=== PATIENT | female | born 1975 | race Caucasian/White ===

== ENCOUNTER 2018-01-25 02:43 | Emergency (ER) | payer OTHER, SELFPAY ==
[2018-01-25 02:55] VITALS: BP 128/74; PULSE 63; RESP 18; TEMP 37; O2SAT 100; BMI 22.1
--- NOTE | 2018-01-25 03:12 | ED.BACK ---
HPI - Back Pain/Injury General Chief Complaint: Back Pain/Injury Stated Complaint: headache, possible head injury Time Seen by Provider: 01/25/18 03:12 Source: patient Mode of arrival: ambulatory Limitations: no limitations History of Present Illness HPI Narrative: The patient was swimming with her children [place] local [place] yesterday morning. She dove into the pool, her form was inadequate. Her head snapped over. She felt cracking in her neck. She presents now about 1.5 days later with suboccipital neck pain, and pain radiating down into the upper thoracic spine. She has occipital headache. She continues swimming after the event. The pain has increased over time. She has no weakness or numbness in extremities. She is ambulatory without difficulty. She has no chest pain or dyspnea. She has no prior history of neck injury. Related Data Home Medications Medication Instructions Recorded Confirmed levothyroxine [Synthroid] 12.5 mcg PO AMAC #0 02/25/16 Previous Rx's Medication Instructions Recorded cyclobenzaprine 10 mg PO Q8HP PRN #20 tab 08/10/16 diazepam [Valium] 5 mg PO Q8H PRN #10 tab 01/25/18 Allergies Allergy/AdvReac Type Severity Reaction Status Date / Time cefaclor Allergy Mild ITCHING Verified 01/25/18 02:59 Review of Systems Review of Systems All systems reviewed & are unremarkable except as noted in HPI and below Constitutional Reports as per HPI, Reports body ache(s), Denies lethargy, Denies weakness and Reports other (Generally healthy) Eyes Denies change in vision ENT Ears, Nose, Mouth, and Throat: Denies change in voice, Denies dysphagia, Denies dizziness and Reports neck pain Cardiovascular Denies chest pain, Denies lightheadedness and Denies dyspnea Respiratory Denies dyspnea Gastrointestinal Gastrointestinal: Denies dysphagia Musculoskeletal Reports neck pain Neurologic Denies dizziness and Denies weakness [facility] Medical History Abscess of pelvis (Acute) Surgical History History of third molar tooth extraction Status post appendectomy Status post bilateral salpingo-oophorectomy (BSO) (04/03/16) Status post exploratory laparotomy (04/03/16) Status post hysterectomy (04/03/16) Status post laparoscopy Social History Smoking Status: Never smoker Exam Initial Vital Signs Initial Vital Signs: Vital Signs Temperature 98.6 F 01/25/18 02:55 Pulse Rate 63 01/25/18 02:55 Respiratory Rate 18 01/25/18 02:55 Blood Pressure 128/74 01/25/18 02:55 Pulse Oximetry 100 01/25/18 02:55 Const General: cooperative and well developed Nutritional Appearance: well nourished Orientation: alert, awake, oriented x3 and not confused Eyes Pupils: PERRL EOM: EOM intact bilaterally Neck Neck: normal visual inspection and other (Tenderness bilaterally in the upper paraspinal region. No tenderness exactly over the cervical spine.) Resp Effort & Inspection: normal respiratory effort, able to speak in complete sentences, no respiratory distress and no use of accessory muscles Auscultation: clear to auscultation bilaterally, no rales, no rhonchi and no wheezes Cardio Rate: regular rate Rhythm: regular rhythm Heart Sounds: no click, no gallops, no murmurs and no rubs Pulses: normal peripheral pulses Back/Spine/Pelvis Back: CVA tenderness Cervical Spine: cervical ROM normal and pain with cervical ROM Thoracic/Lumbar Spine: thoraco-lumbar ROM normal and lumbar spinal tenderness Neuro General: alert, oriented x3 and gait normal Speech: speech normal Motor: other (Normal motor exam of the left upper and lower extremities.) Sensory Exam: other (Normal sensory exam of the upper extremities.) Course Orders Ordered: ED Orders 01/25/18 03:32 XR cervical spine 2V or 3V Stat Discontinued Medications Diazepam (Valium) 5 mg PO NOW ONE Stop: 01/25/18 03:48 Last Admin: 01/25/18 03:53 Dose: 5 mg Ketorolac Tromethamine (Toradol) 60 mg IM NOW ONE Stop: 01/25/18 03:38 Last Admin: 01/25/18 03:52 Dose: 60 mg Vital Signs - 8 hr 01/25/18 02:55 01/25/18 04:50 Temperature 98.6 F Pulse Rate 63 70 Respiratory Rate 18 18 Blood Pressure 128/74 108/67 Pulse Oximetry 100 100 MDM - Back Pain/Injury Imaging Data C-spine x-ray:: My impression: Normal. MDM Narrative Medical decision making narrative: By the history and clinical evaluation she appears to have cervical strain. She has paraspinal tenderness in the occipital area. She will be treated with anti-inflammatories and Valium. I advised her to follow up with her physician in 1 week if no better. If she does not improve, MRI may can be considered. Discharge Plan Departure Patient Disposition: Home Clinical Impression: Cervical muscle strain Discharge Date/Time: 01/25/18 04:51 Interventions: ED Discharge Assessment Last Done: 01/25/18 04:50 Instructions: Whiplash Activity Restrictions/Additional Instructions: Ibuprofen 800 mg every 6 hr as needed for pain. Valium 1/2 to 1 tablet every 6 hr as needed for spasm. Apply warm compresses to the neck frequently. Recheck with her doctor if not improving within the next week or so. Return here if obviously worse. Prescriptions: New diazepam [Valium] 5 mg tablet 5 mg PO Q8H PRN (Reason: muscle spasm) Qty: 10 RF: 0 No Action levothyroxine [Synthroid] 25 MCG tablet 12.5 mcg PO AMAC Qty: 0 RF: 0 cyclobenzaprine 10 MG tablet 10 mg PO Q8HP PRNQty: 20 RF: 0
--- NOTE | 2018-01-25 03:32 | DI.RAD.S_ITS ---
PROCEDURE: XR CERVICAL SPINE 2V OR 3V INDICATIONS: cervical strain TECHNIQUE: 3 view(s) of the cervical spine were acquired. COMPARISON: None. FINDINGS: Bones: No fractures or dislocations to the T1 level. The lateral masses of C1 appear intact on the odontoid view. No suspicious bony lesions. Straightening of the normal cervical lordosis. Mild narrowing of the disc spaces at C5-C6, C6-C7. Diffuse mild facet arthropathy. Soft tissues: No prevertebral soft tissue swelling. IMPRESSION: Mild cervical disc degeneration as above. Straightening of the normal cervical lordosis. Mild facet disease. No fracture. Dictated by: Omi Jose M.D. on 01/25/2018 at 8:39 Approved by: Omi Jose M.D. on 01/25/2018 at 8:42
[2018-01-25] MEDS: KETOROLAC 60 MG/2 ML VIAL IM (03:52)
[2018-01-25] MEDS: diazePAM 5 MG TABLET PO (03:53)
[2018-01-25 04:50] VITALS: BP 108/67; PULSE 70; RESP 18; O2SAT 100
== END 2018-01-25 04:51 | disposition home or self-care (01) ==
PROVIDERS: Emergency Provider Emergency Medicine; PCP Family Medicine
DX: S16.1XXA Strain of muscle, fascia and tendon at neck level, initial encounter (principal); Y93.11 Activity, swimming; Y92.34 Swimming pool (public) as the place of occurrence of the external cause
CPT/HCPCS: 72040; 96372; 99282; 99283; J1885

== ENCOUNTER → 2018-02-24 17:47 | Outpatient (CLI) | payer OTHER, SELFPAY ==
--- NOTE | 2018-02-24 17:50 | DI.MRI.S_ITS ---
PROCEDURE: MR CERVICAL SPINE WO CON INDICATIONS: NECK PAIN TECHNIQUE: Noncontrast sagittal T1 spin echo and T2 fast spin echo, sagittal STIR, foraminal oblique sagittal T2 fast spin echo, and axial gradient echo or T2 fast spin echo through the cervical spine. COMPARISON: None. FINDINGS: Image quality: Excellent. Alignment and Curvature: There is straightening of normal cervical lordosis. No spondylolisthesis is seen. Bone Marrow: Marrow demonstrates normal overall signal. Spinal Cord: Visualized spinal cord has normal size and signal. No cerebellar tonsillar herniation. Paraspinous Soft Tissues: No paravertebral masses. Prevertebral soft tissues are normal in thickness. C2-C3: Normal appearance. C3-C4: Normal appearance. C4-C5: Mild diffuse disc bulge is seen. Bilateral uncinate hypertrophic changes are noted. There is mild left-sided neuroforaminal narrowing. No significant central canal stenosis. C5-C6: There is broad-based disc bulge and bilateral facet hypertrophic changes. Mild central canal stenosis and mild bilateral neuroforaminal narrowing is noted. C6-C7: There is diffuse disc bulge and bilateral uncinate hypertrophic changes with mild central canal stenosis and mild left-sided neuroforaminal narrowing. C7-T1: Normal appearance. IMPRESSION: 1. Mild degenerative disc bulge and bilateral uncinate hypertrophic changes at C4-5 through C6-7 levels causing mild central canal stenosis and mild left worse than right bilateral neuroforaminal narrowing as above. 2. No marrow edema. No compression fracture or spondylolisthesis. 3. No abnormal cervical spinal cord signal. Dictated by: Shekhar Espinoza M.D. on 02/25/2018 at 8:42 Approved by: Shekhar Espinoza M.D. on 02/25/2018 at 8:45
== END ==
PROVIDERS: PCP Family Medicine; Visit Provider Chiropractor
DX: M50.821 Other cervical disc disorders at C4-C5 level (principal); M48.02 Spinal stenosis, cervical region
CPT/HCPCS: 72141

== ENCOUNTER → 2018-07-18 07:34 | Outpatient (CLI) | payer OTHER, SELFPAY ==
--- NOTE | 2018-07-18 | DI.US.S_ITS ---
PROCEDURE: US ABDOMEN COMPLETE INDICATIONS: ABDOMINAL PAIN TECHNIQUE: Real-time scanning was performed of the abdominal and retroperitoneal organs, with image documentation. COMPARISON: [facility], US, US PELVIC COMPLETE, 07/18/2018, 8:27. [facility], CT, ABDOMEN/PELVIS WITH CONTRAST, 08/10/2016, 14:20. FINDINGS: Liver: Liver is normal in size and homogeneous in echotexture. Within the left lobe of the liver medially, there is a 2.4 x 1.4 x 2.7 cm simple appearing cyst seen. Gallbladder: No findings of gallstones or sludge are seen. The gallbladder wall is not thickened, measuring 3 mm or less. No specific pericholecystic fluid is seen. The sonographic Dupree sign is negative. Biliary ducts: Intrahepatic bile ducts are non-dilated. Extrahepatic bile duct caliber measures 4 mm. Normal is 6-7 mm or less in diameter, or 10 mm or less post-cholecystectomy. Pancreas: Visualized portions of the pancreas are sonographically normal. Spleen: Spleen is normal in size and homogeneous in echotexture. Kidneys: The kidneys are not well-seen, secondary to overlying bowel. Kidneys are normal in size and echotexture. Right kidney measures 9.7 cm long; left kidney measures 9.8 cm long. There is a potential extrarenal pelvis seen on the left. No rafael hydronephrosis or nephrolithiasis. No solid masses. Aorta: Visualized aorta is normal in caliber at less than 3 cm. Iliacs: Proximal common iliac arteries are normal in caliber at less than 2.5 cm. IVC: Intrahepatic inferior vena cava is patent. Miscellaneous: No free abdominal fluid. IMPRESSION: Potential extrarenal pelvis seen on the left. No shadowing kidney stones are seen. The gallbladder demonstrates a normal sonographic appearance. No biliary dilatation is seen. Left liver cyst again seen. Dictated by: Mendoza Manuel M.D. on 07/18/2018 at 8:14 Approved by: Mendoza Manuel M.D. on 07/18/2018 at 8:17
--- NOTE | 2018-07-18 | DI.US.S_ITS ---
PROCEDURE: US PELVIC COMPLETE INDICATIONS: GENERALIZED ABDOMINAL PAIN TECHNIQUE: Real-time scanning was performed of the pelvic organs, with image documentation. Additional endovaginal scanning was necessary due to incomplete visualization of the adnexal and endometrial structures by transabdominal scanning. COMPARISON: [facility], CT, ABDOMEN/PELVIS WITH CONTRAST, 08/10/2016, 14:20. [facility], CT, IVP (ABD & PEL WWO CONTRAST), 04/09/2016, 10:06. [facility], US, US ABDOMEN COMPLETE, 07/18/2018, 8:05. [facility], US, PELVIC COMPLETE, 03/19/2016, 8:56. FINDINGS: Transabdominal scanning: No pathologic free abdominal or pelvic fluid. On the accompanying abdominal ultrasound, the kidneys demonstrate a normal appearance. Endovaginal scanning: Uterus: Removed. The vaginal cuff is unremarkable. Ovaries: The left ovary has been removed. The right ovary measures 3.9 x 2.4 x 2.4 cm and demonstrates normal appearing subcentimeter follicles. IMPRESSION: Status post hysterectomy and left oophorectomy. Unremarkable appearing right ovary. Dictated by: Mendoza Manuel M.D. on 07/18/2018 at 9:02 Approved by: Mendoza Manuel M.D. on 07/18/2018 at 9:04
== END ==
PROVIDERS: Family Provider Family Medicine; PCP Family Medicine; Visit Provider Family Medicine
DX: R10.84 Generalized abdominal pain (principal); K76.89 Other specified diseases of liver; Z90.710 Acquired absence of both cervix and uterus
CPT/HCPCS: 76700; 76830; 76856

== ENCOUNTER → 2018-07-25 13:44 | Outpatient (CLI) | payer OTHER, SELFPAY ==
--- NOTE | 2018-07-25 | DI.CT.S_ITS ---
PROCEDURE: CT ABDOMEN PELVIS WO/W CON INDICATIONS: Hematuria, unspecified TECHNIQUE: Optional 5 mm thick noncontrast images acquired from the diaphragm to the symphysis pubis. After the administration of intravenous contrast, 5 mm thick images acquired from the diaphragm to the symphysis pubis after a 10-minute delay. 2 mm thick coronal and sagittal reformats were then performed of the kidneys and ureters. For radiation dose reduction, the following was used: automated exposure control, adjustment of mA and/or kV according to patient size. COMPARISON: [facility], CT, ABDOMEN/PELVIS WITH CONTRAST, 08/10/2016, 14:20. [facility], CT, IVP (ABD & PEL WWO CONTRAST), 04/09/2016, 10:06. [facility], CT, ABDOMEN/PELVIS WITH CONTRAST, 02/24/2016, 22:40. [facility], CT, IVP (ABD & PEL WWO CONTRAST), 01/20/2012, 13:16. FINDINGS: Diagnostic Image quality: Excellent. Lung bases: Lung bases are clear. Heart size is normal. Urinary system: Both kidneys are normal in size, without hydronephrosis or nephrolithiasis on pre-contrast images. No perinephric fat stranding. There is normal bilateral renal enhancement. Renal calyces appear normal in morphology when filled with contrast. A 7 mm simple appearing cyst is present within it the upper to mid right kidney (image 51, series 5). No solid renal lesions are evident. Opacified portions of both ureters demonstrate normal caliber. Bladder wall thickness is normal. No calcified bladder stones. Other solid organs: The liver is normal in size. There is a simple appearing cyst involving the medial segment of the left hepatic lobe that measures 2.4 x 1.6 cm (image 78, series 3), unchanged. The gallbladder is not enlarged or inflamed. The pancreas, adrenals, and spleen are within normal limits. Peritoneum and bowel: Bowel loops demonstrate normal wall thickness and caliber. No free fluid or air. No loculated fluid collections are present. No fluid-filled distended small bowel loops are identified. Moderate residual stool is seen within the colon. The appendix is not clearly evident. Minimal distal colonic diverticulosis is evident without surrounding inflammation to suggest diverticulitis. Nodes and vessels: No retroperitoneal or mesenteric adenopathy by size criteria. Aorta and inferior vena cava are normal in size. Abdominal wall: No ventral hernias. Pelvis: No pathologic free pelvic fluid. No inguinal hernias or adenopathy. The uterus is surgically absent. The ovaries are not definitely seen and may be surgically absent, as well. Bones: No suspicious bony lesions. No vertebral body compression fractures. IMPRESSION: 1. No CT findings are identified to explain the patient's hematuria. 2. No nephrolithiasis or hydronephrosis. 3. Possible mild colonic constipation. No bowel obstruction. 4. Mild distal colonic diverticulosis without diverticulitis. 5. Simple hepatic cyst is unchanged. Dictated by: Conor Moreira M.D. on 07/25/2018 at 15:48 Approved by: Conor Moreira M.D. on 07/25/2018 at 15:55
== END ==
PROVIDERS: Family Provider Family Medicine; PCP Family Medicine; Visit Provider Family Medicine
DX: R31.9 Hematuria, unspecified (principal); N28.1 Cyst of kidney, acquired; K76.89 Other specified diseases of liver; K57.90 Diverticulosis of intestine, part unspecified, without perforation or abscess without bleeding
CPT/HCPCS: 74178; Q9967

== ENCOUNTER → 2018-07-27 16:37 | Outpatient (CLI) | payer OTHER, SELFPAY ==
--- NOTE | 2018-07-27 | DI.RAD.S_ITS ---
PROCEDURE: XR CLAVICLE LT INDICATIONS: PAIN AND SWELLING AND LEFT BREAST SWELLING AND PAIN TECHNIQUE: 2 views of the clavicle were acquired. COMPARISON: None. FINDINGS: Bones: There is slight inferior subluxation at left acromioclavicular joint. No fracture or rafael dislocation is seen. No suspicious bony lesions. Soft tissues: No suspicious soft tissue calcifications. IMPRESSION: Finding is suggestive of moderate grade left acromioclavicular separation. No fracture is seen. Dictated by: Shekhar Espinoza M.D. on 07/27/2018 at 17:15 Approved by: Shekhar Espinoza M.D. on 07/27/2018 at 17:16
== END ==
PROVIDERS: Family Provider Family Medicine; PCP Family Medicine; Visit Provider Family Medicine
DX: M89.8X1 Other specified disorders of bone, shoulder (principal); N64.4 Mastodynia
CPT/HCPCS: 73000

== ENCOUNTER 2018-07-28 17:03 | Emergency (ER) | payer OTHER, SELFPAY ==
[2018-07-28 17:10] VITALS: BP 128/82; PULSE 98; RESP 16; TEMP 37.2; O2SAT 100; BMI 21.6
[2018-07-28 18:13] VITALS: BP 117/83; PULSE 71; RESP 14; O2SAT 100
--- NOTE | 2018-07-28 18:41 | ED.CHESTPAIN ---
HPI - Chest Pain General Chief Complaint: Chest Pain Stated Complaint: chest, breast, neck and throat pain Time Seen by Provider: 07/28/18 18:37 Source: patient Mode of arrival: ambulatory Limitations: no limitations History of Present Illness HPI narrative: The patient presents with multiple complaints. She has been experience discomfort in the left clavicle region for approximately 1 month. She did should complains of pain in the anterior neck, especially noted when swallowing. She denies shortness of breath. She denies any choking sensation. Discomfort is also present in the left axilla, primarily with palpation. She has not felt lumps in her neck or axilla. She has no pain with motion of the left shoulder. She denies any specific trauma. Yesterday she apparently had swelling and discomfort in left breast, she does not have that sensation now. She has had no drainage from the breast. Her last routine exam was about 6 months ago. She contacted her physician, a mammogram is ordered. She has not scheduled for an exam. She has no history of breast disease. She has apparently been complaining abdominal pain also. Thus far her physician has ordered pelvic ultrasound, abdominal ultrasound, and abdomen/pelvis CT. She has proteinuria, she has a long history of hematuria without associated pathology. She is status post hysterectomy with left oophorectomy. She has no vaginal complaints. She denies dysuria. She has noted that she has lately had proteinuria, but no dysuria or recent significant hematuria. The ultrasounds and CTs were relatively benign. With the neck, clavicle, axilla and breast complains, she denies trauma. However she tells me she was on a strenuous workout program recently, prior to these current complaints. Her workout included weightlifting as well as aerobic exercises. Again she can recall no trauma. She has no chest pain with exertion. She has no dyspnea, cough, orthopnea or hemoptysis. She denies leg pain or swelling. She has no history of cardio vascular pulmonary disease. She has no recent weight loss, appetite change, night sweats or fever. Related Data Home Medications Medication Instructions Recorded Confirmed dextroamphetamine-amphetamine 30 mg PO QAM 07/28/18 07/28/18 Allergies Allergy/AdvReac Type Severity Reaction Status Date / Time cefaclor Allergy Mild ITCHING Verified 01/25/18 02:59 Review of Systems Review of Systems ROS Unobtainable: All systems reviewed & are unremarkable except as noted in HPI and below Constitutional Reports as per HPI, Reports system reviewed and no additional complaints, except as docu, Denies excessive sweating, Denies fatigue and Denies frequent falls Eyes Comments: No eye complaints ENT Ears, Nose, Mouth, and Throat: Denies change in voice, Denies dizziness, Denies neck mass, Reports neck pain, Denies odynophagia and Denies sore throat Cardiovascular Reports chest pain (Left upper chest discomfort. See HPI.), Denies irregular heart rhythm, Denies lightheadedness, Denies palpitations, Denies dyspnea, Denies dyspnea on exertion and Denies orthopnea Respiratory Denies cough, Denies dyspnea, Denies dyspnea on exertion, Reports wheezing and Reports other (No hemoptysis.) Gastrointestinal Gastrointestinal: Denies odynophagia Comments: See HPI. Genitourinary Denies dysuria, Denies pelvic pain and Denies flank pain Musculoskeletal Denies back pain, Denies myalgias, Reports neck pain and Denies numbness Integumentary/Breasts Denies erythema, Denies rash and Denies wounds Neurologic Denies confusion, Denies dizziness, Denies frequent falls and Denies numbness Psychiatric Denies anxiety and Denies confusion Endocrine Denies excessive sweating, Denies fatigue and Denies palpitations Hematologic/Lymphatic Denies easy bleeding, Denies easy bruising and Denies lymphadenopathy Allergic/Immunologic Reports wheezing Comments: No allergies [facility] Medical History (Updated 07/28/18 @ 22:53 by Fransico Card MD) Benign hematuria (Acute) Hypothyroidism (Acute) Abscess of pelvis (Acute) Surgical History History of third molar tooth extraction Status post appendectomy Status post bilateral salpingo-oophorectomy (BSO) (04/03/16) Status post exploratory laparotomy (04/03/16) Status post hysterectomy (04/03/16) Status post laparoscopy Social History Smoking Status: Former smoker Social History Smoking Status: Former smoker Exam Initial Vital Signs Initial Vital Signs: Vital Signs Temperature 99.0 F 07/28/18 17:10 Pulse Rate 98 H 07/28/18 17:10 Respiratory Rate 16 07/28/18 17:10 Blood Pressure 128/82 07/28/18 17:10 Pulse Oximetry 100 07/28/18 17:10 Const General: cooperative and well developed Nutritional Appearance: well nourished Orientation: alert, awake and oriented x3 [facility] Head: normocephalic and atraumatic Nose: external nose normal Face and sinus: face symmetric Mouth: oral mucosae normal and moist mucous membranes Throat: posterior oropharynx normal Eyes General: appearance normal, both eyes and all related structures Conjunctivae: conjunctivae normal Sclera: sclerae normal Neck Neck: normal visual inspection, full ROM, no meningeal signs, trachea midline, No anterior neck swelling, No lymphadenopathy and No JVD Thyroid: thyroid normal Carotids: normal carotid upstroke Lymphatic: No lymphadenopathy Chest Chest: normal inspection of the chest Other: Palpable tenderness of the left sternoclavicular joint without palpable deformity. Resp Effort & Inspection: normal respiratory effort, able to speak in complete sentences, no respiratory distress and no use of accessory muscles Auscultation: clear to auscultation bilaterally, no rales, no rhonchi and no wheezes Cardio Rate: regular rate Rhythm: regular rhythm Heart Sounds: no click, no gallops, no murmurs and no rubs Pulses: normal peripheral pulses GI Inspection: non-distended Palpation: soft, no hepatosplenomegaly, No guarding, No pulsatile mass and No tender Auscultation: normal bowel sounds Back/Spine/Pelvis Back: No back tenderness and No CVA tenderness Skin General: no rashes or lesions noted, No jaundice and No petechiae Neuro General: alert, oriented x3, gait normal and no focal motor deficits Speech: speech normal Extrem General: No calf tenderness and No edema Psych Appearance: grossly normal and well kempt Mental Status: mental status grossly normal Course Course Narrative: The patient is concerned about proteinuria may on require monitoring. The urine is currently clear other than slight hematuria, she has a history consistent with benign hematuria with prior extensive workups. The abdomen pelvis workup done in recent days is benign. Complaints in the neck, clavicle and axilla may represent strain/sprain. She was on a rather aggressive workout regimen before symptoms started. Evaluation is benign. Her TSH is slightly elevated. She was previously on medications for hypothyroidism, this has not been looked into recently and she is off medications. She also complained about left breast swelling yesterday. Mammogram is ordered, she has no follow-up appointment yet. I have encouraged her to make a follow-up appointment to address the breast concern, along with a mammogram that order. She has additional follow-up on her thyroid. Orders Ordered: ED Orders 07/28/18 18:25 Complete Blood Count AUTO DIFF Stat Comprehensive Metabolic Panel Stat D Dimer Stat Lipase Stat Prothrombin Time INR Stat Thyroid Stimulating Hormone Stat Troponin & CK Cardiac Panel Stat 07/28/18 19:12 XR chest 2V Stat Discontinued Medications Ketorolac Tromethamine (Toradol) 30 mg IV NOW ONE Stop: 07/28/18 20:07 Last Admin: 07/28/18 20:09 Dose: 30 mg Vital Signs - 8 hr 07/28/18 17:10 07/28/18 18:13 07/28/18 19:20 Temperature 99.0 F Pulse Rate 98 H 71 68 Respiratory Rate 16 14 12 Blood Pressure 128/82 Blood Pressure [Left Arm] 121/79 Blood Pressure [Right Arm] 117/83 119/82 Pulse Oximetry 100 100 100 07/28/18 20:53 Temperature Pulse Rate 71 Respiratory Rate 14 Blood Pressure 119/78 Blood Pressure [Left Arm] Blood Pressure [Right Arm] Pulse Oximetry 98 MDM - Chest Pain Lab Data Result diagrams: 07/28/18 18:25 07/28/18 18:25 Lab Results 07/28/18 07/28/18 07/28/18 Range/Units 18:25 18:25 18:25 WBC 7.3 (4.5-11.0) X10^3/uL RBC 4.62 (4.0-5.2) X10^6/uL Hgb 14.4 (12.0-16.0) g/dL Hct 42.9 (36-46) % MCV 92.9 (80-100) fL MCH 31.2 (26-34) PG MCHC 33.6 (30-36) % RDW 12.4 (11.6-14.8) % Plt Count 216 (150-400) X10^3/uL Neut % (Auto) 71.3 (50-75) % Lymph % (Auto) 20.1 L (25-40) % Foard % (Auto) 6.8 (3-14) % Eos % (Auto) 1.0 L (2-4) % Baso % (Auto) 0.8 (0-2) % Neut # (Auto) 5200 (1751-9682) /uL Lymph # (Auto) 1500 (0818-6254) /uL Foard # (Auto) 500 (0-900) /uL Eos # (Auto) 100 (0-450) /uL Baso # (Auto) 100 (0-100) /uL PT (10.1-12.7) SECONDS INR (0.9-1.3) D-Dimer (<230) ng/mL Sodium 140 (137-145) mmol/L Potassium 4.0 (3.4-5.1) mmol/L Chloride 104 (98-107) mmol/L Carbon Dioxide 29 (22-32) mmol/L BUN 15 (7-17) mg/dL Creatinine 0.60 (0.52-1.04) mg/dL Estimated GFR > 60.0 (>60) mL/min BUN/Creatinine Ratio 25.0 H (6-22) Glucose 81 (70-100) mg/dL Calcium 9.5 (8.4-10.2) mg/dL Total Bilirubin 0.8 (0.2-1.3) mg/dL AST 26 (14-36) IU/L ALT 20 (9-52) IU/L Alkaline Phosphatase 73 (38-126) U/L Total Creatine Kinase 101 (30-135) U/L CK-MB (CK-2) 1.25 (<2.37) ng/mL CK-MB (CK-2) Rel Index 1.2 L (1.5-5.0) % Troponin I < 0.012 (0.01-0.034) ng/mL Total Protein 7.0 (6.3-8.2) g/dL Albumin 4.3 (3.5-5.0) g/dL Globulin 2.7 (1.7-4.1) g/dL Albumin/Globulin Ratio 1.6 (1.0-2.8) Lipase 50 (23-300) U/L TSH (0.47-4.68) uIU/mL 07/28/18 07/28/18 07/28/18 Range/Units 18:25 18:25 18:25 WBC (4.5-11.0) X10^3/uL RBC (4.0-5.2) X10^6/uL Hgb (12.0-16.0) g/dL Hct (36-46) % MCV (80-100) fL MCH (26-34) PG MCHC (30-36) % RDW (11.6-14.8) % Plt Count (150-400) X10^3/uL Neut % (Auto) (50-75) % Lymph % (Auto) (25-40) % Foard % (Auto) (3-14) % Eos % (Auto) (2-4) % Baso % (Auto) (0-2) % Neut # (Auto) (1098-3473) /uL Lymph # (Auto) (5628-7380) /uL Foard # (Auto) (0-900) /uL Eos # (Auto) (0-450) /uL Baso # (Auto) (0-100) /uL PT 12.3 (10.1-12.7) SECONDS INR 1.1 (0.9-1.3) D-Dimer 201 (<230) ng/mL Sodium (137-145) mmol/L Potassium (3.4-5.1) mmol/L Chloride (98-107) mmol/L Carbon Dioxide (22-32) mmol/L BUN (7-17) mg/dL Creatinine (0.52-1.04) mg/dL Estimated GFR (>60) mL/min BUN/Creatinine Ratio (6-22) Glucose (70-100) mg/dL Calcium (8.4-10.2) mg/dL Total Bilirubin (0.2-1.3) mg/dL AST (14-36) IU/L ALT (9-52) IU/L Alkaline Phosphatase (38-126) U/L Total Creatine Kinase (30-135) U/L CK-MB (CK-2) (<2.37) ng/mL CK-MB (CK-2) Rel Index (1.5-5.0) % Troponin I (0.01-0.034) ng/mL Total Protein (6.3-8.2) g/dL Albumin (3.5-5.0) g/dL Globulin (1.7-4.1) g/dL Albumin/Globulin Ratio (1.0-2.8) Lipase (23-300) U/L TSH 5.44 H (0.47-4.68) uIU/mL Urine Dip Bedside Urine Glucose Negative Bedside Urine Bilirubin - Negative Bedside Urine Ketone +/- 5 Urine Specific Mckenna 1.015 Bedside Urine Occult Blood + Bedside Urine pH 7.0 Bedside Urine Protein - Negative Bedside Urine Urobilinogen - Negative Bedside Urine Nitrite - Negative Bedside Urine Leukocytes - Negative Esterase Imaging Data Chest x-ray: Radiologist's impression: [address] [address] XRay Report Signed Patient: Syl Pires LMR#: [id number] : 1975Acct:[id number] Age/Sex: 43 / FDate of Service: 07/28/18 Loc: ED Accession Number: [id number] Procedure: XR chest 2V Ordering Provider: Fransico Card MD PROCEDURE: XR CHEST 2V INDICATIONS: left upper chest discomfort TECHNIQUE: 2 views of the chest were acquired. COMPARISON: [facility], , CHEST 1 VIEW, 03/07/2016, 18:33. FINDINGS: Surgical changes and devices: None. Lungs and pleura: Lungs are clear. No pleural effusions or pneumothorax. Mediastinum: Mediastinal contours are normal. Heart size is normal. Bones and chest wall: No suspicious bony abnormalities. Soft tissues appear unremarkable. IMPRESSION: No acute cardiopulmonary disease process. Dictated by: Yanira López MD, PhD on 07/28/2018 at 19:35 Approved by: Yanira López MD, PhD on 07/28/2018 at 19:36 ECG Data Attestation: I personally reviewed and interpreted this ECG as follows: (Normal sinus rhythm rate 71 beats per minute. Normal intervals. No ectopy. No acute ST T wave changes. Normal study.) Discharge Plan Departure Patient Disposition: Home Clinical Impression: Elevated TSH, Benign hematuria Sternoclavicular joint strain Qualifiers: Encounter type: initial encounter Qualified Code(s): S29.011A - Strain of muscle and tendon of front wall of thorax, initial encounter Discharge Date/Time: 07/28/18 20:54 Interventions: ED Discharge Assessment Last Done: 07/28/18 20:53 Instructions: Sprain, Hypothyroidism Activity Restrictions/Additional Instructions: Take Tylenol or Advil as needed for the pain in year clavicle and axilla. Return to her normal workouts of tolerated. Recheck with her own doctor in 3-4 weeks if not improving. You need to follow up with her doctor regarding your breast concerns. I understand you have a mammogram ordered, you should schedule for an associated physical. Your TSH is slightly elevated. I now understand you used to be on medications for hypothyroidism. Follow up with her doctor about complete re-evaluation of your thyroid. Return to the ER as needed. Prescriptions: No Action dextroamphetamine-amphetamine 30 mg capsule,extended release 24hr 30 mg PO QAM RF: 0 Referrals: Gómez Howard MD [Primary Care Provider] -
[2018-07-28 18:47] LABS: Add Manual Diff / Slide Review NO; Basophils Absolute Auto 100 /uL (0-100); Basophils Percent Auto 0.8 % (0-2); Eosinophils Absolute Auto 100 /uL (0-450); Hematocrit 42.9 % (36-46); Hemoglobin 14.4 g/dL (12.0-16.0); Lymphocytes Absolute Auto 1500 /uL (1100-4500); Lymphocytes Percent Auto 20.1 % (25-40); Mean Corpuscular HGB Conc 33.6 % (30-36); Mean Corpuscular Hemoglobin 31.2 PG (26-34); Mean Corpuscular Volume 92.9 fL (80-100); Monocytes Absolute Auto 500 /uL (0-900); Monocytes Percent Auto 6.8 % (3-14); Neutrophils Absolute Auto 5200 /uL (1500-7000); Neutrophils Percent Auto 71.3 % (50-75); Platelet Count 216 X10^3/uL (150-400); Red Blood Cell Count 4.62 X10^6/uL (4.0-5.2); Red Cell Distribution Width 12.4 % (11.6-14.8); White Blood Cell Count 7.3 X10^3/uL (4.5-11.0)
[2018-07-28 19:08] LABS: Alanine Aminotransferase 20 IU/L (9-52); Albumin 4.3 g/dL (3.5-5.0); Albumin Globulin Ratio 1.6 (1.0-2.8); Alkaline Phosphatase 73 U/L (38-126); Aspartate Aminotransferase 26 IU/L (14-36); Bilirubin Total 0.8 mg/dL (0.2-1.3); Blood Urea Nitrogen 15 mg/dL (7-17); Calcium 9.5 mg/dL (8.4-10.2); Carbon Dioxide 29 mmol/L (22-32); Chloride 104 mmol/L (98-107); Creatine Kinase 101 U/L (30-135); Estimated Glomerular Filt Rate > 60.0 mL/min (>60); Globulin 2.7 g/dL (1.7-4.1); Glucose 81 mg/dL (70-100); HEMOLYSIS < 15 (0-50); Lipase 50 U/L (23-300); Sodium 140 mmol/L (137-145)
--- NOTE | 2018-07-28 19:12 | DI.RAD.S_ITS ---
PROCEDURE: XR CHEST 2V INDICATIONS: left upper chest discomfort TECHNIQUE: 2 views of the chest were acquired. COMPARISON: [facility], , CHEST 1 VIEW, 03/07/2016, 18:33. FINDINGS: Surgical changes and devices: None. Lungs and pleura: Lungs are clear. No pleural effusions or pneumothorax. Mediastinum: Mediastinal contours are normal. Heart size is normal. Bones and chest wall: No suspicious bony abnormalities. Soft tissues appear unremarkable. IMPRESSION: No acute cardiopulmonary disease process. Dictated by: Yanira López MD, PhD on 07/28/2018 at 19:35 Approved by: Yanira López MD, PhD on 07/28/2018 at 19:36
[2018-07-28 19:19] LABS: Troponin I < 0.012 ng/mL (0.01-0.034)
[2018-07-28 19:20] VITALS: BP 119/82; BP 121/79; PULSE 68; RESP 12; O2SAT 100
[2018-07-28 19:24] LABS: CKMB % Relative Index 1.2 % (1.5-5.0); Creatine Kinase MB 1.25 ng/mL (<2.37)
[2018-07-28 19:30] LABS: INR 1.1 (0.9-1.3); Prothrombin Time 12.3 SECONDS (10.1-12.7)
[2018-07-28 19:33] LABS: D Dimer 201 ng/mL (<230)
--- NOTE | 2018-07-28 19:35 | ED_ITS ---
HPI - Chest Pain General Chief Complaint: Chest Pain Stated Complaint: chest, breast, neck and throat pain Time Seen by Provider: 07/28/18 18:37 Source: patient Mode of arrival: ambulatory Limitations: no limitations History of Present Illness HPI narrative: The patient presents with multiple complaints. She has been experience discomfort in the left clavicle region for approximately 1 month. She did should complains of pain in the anterior neck, especially noted when swallowing. She denies shortness of breath. She denies any choking sensation. Discomfort is also present in the left axilla, primarily with palpation. She has not felt lumps in her neck or axilla. She has no pain with motion of the left shoulder. She denies any specific trauma. Yesterday she apparently had swelling and discomfort in left breast, she does not have that sensation now. She has had no drainage from the breast. Her last routine exam was about 6 months ago. She contacted her physician, a mammogram is ordered. She has not scheduled for an exam. She has no history of breast disease. She has apparently been complaining abdominal pain also. Thus far her physician has ordered pelvic ultrasound, abdominal ultrasound, and abdomen/pelvis CT. She has proteinuria, she has a long history of hematuria without associated pathology. She is status post hysterectomy with left oophorectomy. She has no vaginal complaints. She denies dysuria. She has noted that she has lately had proteinuria, but no dysuria or recent significant hematuria. The ultrasounds and CTs were relatively benign. With the neck, clavicle, axilla and breast complains, she denies trauma. However she tells me she was on a strenuous workout program recently, prior to these current complaints. Her workout included weightlifting as well as aerobic exercises. Again she can recall no trauma. She has no chest pain with exertion. She has no dyspnea, cough, orthopnea or hemoptysis. She denies leg pain or swelling. She has no history of cardio vascular pulmonary disease. She has no recent weight loss, appetite change, night sweats or fever. Related Data Home Medications Medication Instructions Recorded Confirmed dextroamphetamine-amphetamine 30 mg PO QAM 07/28/18 07/28/18 Allergies Allergy/AdvReac Type Severity Reaction Status Date / Time cefaclor Allergy Mild ITCHING Verified 01/25/18 02:59 Review of Systems Review of Systems ROS Unobtainable: All systems reviewed & are unremarkable except as noted in HPI and below Constitutional Reports as per HPI, Reports system reviewed and no additional complaints, except as docu, Denies excessive sweating, Denies fatigue and Denies frequent falls Eyes Comments: No eye complaints ENT Ears, Nose, Mouth, and Throat: Denies change in voice, Denies dizziness, Denies neck mass, Reports neck pain, Denies odynophagia and Denies sore throat Cardiovascular Reports chest pain (Left upper chest discomfort. See HPI.), Denies irregular heart rhythm, Denies lightheadedness, Denies palpitations, Denies dyspnea, Denies dyspnea on exertion and Denies orthopnea Respiratory Denies cough, Denies dyspnea, Denies dyspnea on exertion, Reports wheezing and Reports other (No hemoptysis.) Gastrointestinal Gastrointestinal: Denies odynophagia Comments: See HPI. Genitourinary Denies dysuria, Denies pelvic pain and Denies flank pain Musculoskeletal Denies back pain, Denies myalgias, Reports neck pain and Denies numbness Integumentary/Breasts Denies erythema, Denies rash and Denies wounds Neurologic Denies confusion, Denies dizziness, Denies frequent falls and Denies numbness Psychiatric Denies anxiety and Denies confusion Endocrine Denies excessive sweating, Denies fatigue and Denies palpitations Hematologic/Lymphatic Denies easy bleeding, Denies easy bruising and Denies lymphadenopathy Allergic/Immunologic Reports wheezing Comments: No allergies [facility] Medical History (Updated 07/28/18 @ 22:53 by Fransico Card MD) Benign hematuria (Acute) Hypothyroidism (Acute) Abscess of pelvis (Acute) Surgical History History of third molar tooth extraction Status post appendectomy Status post bilateral salpingo-oophorectomy (BSO) (04/03/16) Status post exploratory laparotomy (04/03/16) Status post hysterectomy (04/03/16) Status post laparoscopy Social History Smoking Status: Former smoker Social History Smoking Status: Former smoker Exam Initial Vital Signs Initial Vital Signs: Vital Signs Temperature 99.0 F 07/28/18 17:10 Pulse Rate 98 H 07/28/18 17:10 Respiratory Rate 16 07/28/18 17:10 Blood Pressure 128/82 07/28/18 17:10 Pulse Oximetry 100 07/28/18 17:10 Const General: cooperative and well developed Nutritional Appearance: well nourished Orientation: alert, awake and oriented x3 [facility] Head: normocephalic and atraumatic Nose: external nose normal Face and sinus: face symmetric Mouth: oral mucosae normal and moist mucous membranes Throat: posterior oropharynx normal Eyes General: appearance normal, both eyes and all related structures Conjunctivae: conjunctivae normal Sclera: sclerae normal Neck Neck: normal visual inspection, full ROM, no meningeal signs, trachea midline, No anterior neck swelling, No lymphadenopathy and No JVD Thyroid: thyroid normal Carotids: normal carotid upstroke Lymphatic: No lymphadenopathy Chest Chest: normal inspection of the chest Other: Palpable tenderness of the left sternoclavicular joint without palpable deformity. Resp Effort & Inspection: normal respiratory effort, able to speak in complete sentences, no respiratory distress and no use of accessory muscles Auscultation: clear to auscultation bilaterally, no rales, no rhonchi and no wheezes Cardio Rate: regular rate Rhythm: regular rhythm Heart Sounds: no click, no gallops, no murmurs and no rubs Pulses: normal peripheral pulses GI Inspection: non-distended Palpation: soft, no hepatosplenomegaly, No guarding, No pulsatile mass and No tender Auscultation: normal bowel sounds Back/Spine/Pelvis Back: No back tenderness and No CVA tenderness Skin General: no rashes or lesions noted, No jaundice and No petechiae Neuro General: alert, oriented x3, gait normal and no focal motor deficits Speech: speech normal Extrem General: No calf tenderness and No edema Psych Appearance: grossly normal and well kempt Mental Status: mental status grossly normal Course Course Narrative: The patient is concerned about proteinuria may on require monitoring. The urine is currently clear other than slight hematuria, she has a history consistent with benign hematuria with prior extensive workups. The abdomen pelvis workup done in recent days is benign. Complaints in the neck, clavicle and axilla may represent strain/sprain. She was on a rather aggressive workout regimen before symptoms started. Evaluation is benign. Her TSH is slightly elevated. She was previously on medications for hypothyroidism, this has not been looked into recently and she is off medications. She also complained about left breast swelling yesterday. Mammogram is ordered, she has no follow-up appointment yet. I have encouraged her to make a follow-up appointment to address the breast concern, along with a mammogram that order. She has additional follow-up on her thyroid. Orders Ordered: ED Orders 07/28/18 18:25 Complete Blood Count AUTO DIFF Stat Comprehensive Metabolic Panel Stat D Dimer Stat Lipase Stat Prothrombin Time INR Stat Thyroid Stimulating Hormone Stat Troponin & CK Cardiac Panel Stat 07/28/18 19:12 XR chest 2V Stat Discontinued Medications Ketorolac Tromethamine (Toradol) 30 mg IV NOW ONE Stop: 07/28/18 20:07 Last Admin: 07/28/18 20:09 Dose: 30 mg Vital Signs - 8 hr 07/28/18 17:10 07/28/18 18:13 07/28/18 19:20 Temperature 99.0 F Pulse Rate 98 H 71 68 Respiratory Rate 16 14 12 Blood Pressure 128/82 Blood Pressure [Left Arm] 121/79 Blood Pressure [Right Arm] 117/83 119/82 Pulse Oximetry 100 100 100 07/28/18 20:53 Temperature Pulse Rate 71 Respiratory Rate 14 Blood Pressure 119/78 Blood Pressure [Left Arm] Blood Pressure [Right Arm] Pulse Oximetry 98 MDM - Chest Pain Lab Data Result diagrams: 07/28/18 18:25 07/28/18 18:25 Lab Results 07/28/18 07/28/18 07/28/18 Range/Units 18:25 18:25 18:25 WBC 7.3 (4.5-11.0) X10^3/uL RBC 4.62 (4.0-5.2) X10^6/uL Hgb 14.4 (12.0-16.0) g/dL Hct 42.9 (36-46) % MCV 92.9 (80-100) fL MCH 31.2 (26-34) PG MCHC 33.6 (30-36) % RDW 12.4 (11.6-14.8) % Plt Count 216 (150-400) X10^3/uL Neut % (Auto) 71.3 (50-75) % Lymph % (Auto) 20.1 L (25-40) % [place] % (Auto) 6.8 (3-14) % Eos % (Auto) 1.0 L (2-4) % Baso % (Auto) 0.8 (0-2) % Neut # (Auto) 5200 (5486-0927) /uL Lymph # (Auto) 1500 (4326-7843) /uL [place] # (Auto) 500 (0-900) /uL Eos # (Auto) 100 (0-450) /uL Baso # (Auto) 100 (0-100) /uL PT (10.1-12.7) SECONDS INR (0.9-1.3) D-Dimer (<230) ng/mL Sodium 140 (137-145) mmol/L Potassium 4.0 (3.4-5.1) mmol/L Chloride 104 (98-107) mmol/L Carbon Dioxide 29 (22-32) mmol/L BUN 15 (7-17) mg/dL Creatinine 0.60 (0.52-1.04) mg/dL Estimated GFR > 60.0 (>60) mL/min BUN/Creatinine Ratio 25.0 H (6-22) Glucose 81 (70-100) mg/dL Calcium 9.5 (8.4-10.2) mg/dL Total Bilirubin 0.8 (0.2-1.3) mg/dL AST 26 (14-36) IU/L ALT 20 (9-52) IU/L Alkaline Phosphatase 73 (38-126) U/L Total Creatine Kinase 101 (30-135) U/L CK-MB (CK-2) 1.25 (<2.37) ng/mL CK-MB (CK-2) Rel Index 1.2 L (1.5-5.0) % Troponin I < 0.012 (0.01-0.034) ng/mL Total Protein 7.0 (6.3-8.2) g/dL Albumin 4.3 (3.5-5.0) g/dL Globulin 2.7 (1.7-4.1) g/dL Albumin/Globulin Ratio 1.6 (1.0-2.8) Lipase 50 (23-300) U/L TSH (0.47-4.68) uIU/mL 07/28/18 07/28/18 07/28/18 Range/Units 18:25 18:25 18:25 WBC (4.5-11.0) X10^3/uL RBC (4.0-5.2) X10^6/uL Hgb (12.0-16.0) g/dL Hct (36-46) % MCV (80-100) fL MCH (26-34) PG MCHC (30-36) % RDW (11.6-14.8) % Plt Count (150-400) X10^3/uL Neut % (Auto) (50-75) % Lymph % (Auto) (25-40) % [place] % (Auto) (3-14) % Eos % (Auto) (2-4) % Baso % (Auto) (0-2) % Neut # (Auto) (5615-3369) /uL Lymph # (Auto) (0370-8798) /uL [place] # (Auto) (0-900) /uL Eos # (Auto) (0-450) /uL Baso # (Auto) (0-100) /uL PT 12.3 (10.1-12.7) SECONDS INR 1.1 (0.9-1.3) D-Dimer 201 (<230) ng/mL Sodium (137-145) mmol/L Potassium (3.4-5.1) mmol/L Chloride (98-107) mmol/L Carbon Dioxide (22-32) mmol/L BUN (7-17) mg/dL Creatinine (0.52-1.04) mg/dL Estimated GFR (>60) mL/min BUN/Creatinine Ratio (6-22) Glucose (70-100) mg/dL Calcium (8.4-10.2) mg/dL Total Bilirubin (0.2-1.3) mg/dL AST (14-36) IU/L ALT (9-52) IU/L Alkaline Phosphatase (38-126) U/L Total Creatine Kinase (30-135) U/L CK-MB (CK-2) (<2.37) ng/mL CK-MB (CK-2) Rel Index (1.5-5.0) % Troponin I (0.01-0.034) ng/mL Total Protein (6.3-8.2) g/dL Albumin (3.5-5.0) g/dL Globulin (1.7-4.1) g/dL Albumin/Globulin Ratio (1.0-2.8) Lipase (23-300) U/L TSH 5.44 H (0.47-4.68) uIU/mL Urine Dip Bedside Urine Glucose Negative Bedside Urine Bilirubin - Negative Bedside Urine Ketone +/- 5 Urine Specific Lester 1.015 Bedside Urine Occult Blood + Bedside Urine pH 7.0 Bedside Urine Protein - Negative Bedside Urine Urobilinogen - Negative Bedside Urine Nitrite - Negative Bedside Urine Leukocytes - Negative Esterase Imaging Data Chest x-ray: Radiologist's impression: [address] [address] XRay Report Signed Patient: Syl Pires LMR#: [id number] : 1975Acct:[id number] Age/Sex: 43 / FDate of Service: 07/28/18 Loc: ED Accession Number: [id number] Procedure: XR chest 2V Ordering Provider: Fransico Card MD PROCEDURE: XR CHEST 2V INDICATIONS: left upper chest discomfort TECHNIQUE: 2 views of the chest were acquired. COMPARISON: [facility], , CHEST 1 VIEW, 03/07/2016, 18:33. FINDINGS: Surgical changes and devices: None. Lungs and pleura: Lungs are clear. No pleural effusions or pneumothorax. Mediastinum: Mediastinal contours are normal. Heart size is normal. Bones and chest wall: No suspicious bony abnormalities. Soft tissues appear unremarkable. IMPRESSION: No acute cardiopulmonary disease process. Dictated by: Yanira López MD, PhD on 07/28/2018 at 19:35 Approved by: Yanira López MD, PhD on 07/28/2018 at 19:36 ECG Data Attestation: I personally reviewed and interpreted this ECG as follows: (Normal sinus rhythm rate 71 beats per minute. Normal intervals. No ectopy. No acute ST T wave changes. Normal study.) Discharge Plan Departure Patient Disposition: Home Clinical Impression: Elevated TSH, Benign hematuria Sternoclavicular joint strain Qualifiers: Encounter type: initial encounter Qualified Code(s): S29.011A - Strain of muscle and tendon of front wall of thorax, initial encounter Discharge Date/Time: 07/28/18 20:54 Interventions: ED Discharge Assessment Last Done: 07/28/18 20:53 Instructions: Sprain, Hypothyroidism Activity Restrictions/Additional Instructions: Take Tylenol or Advil as needed for the pain in year clavicle and axilla. Return to her normal workouts of tolerated. Recheck with her own doctor in 3-4 weeks if not improving. You need to follow up with her doctor regarding your breast concerns. I understand you have a mammogram ordered, you should schedule for an associated physical. Your TSH is slightly elevated. I now understand you used to be on medications for hypothyroidism. Follow up with her doctor about complete re-evaluation of your thyroid. Return to the ER as needed. Prescriptions: No Action dextroamphetamine-amphetamine 30 mg capsule,extended release 24hr 30 mg PO QAM RF: 0 Referrals: Gómez Howard MD [Primary Care Provider] -
[2018-07-28 20:09] LABS: Thyroid Stimulating Hormone 5.44 uIU/mL (0.47-4.68)
[2018-07-28] MEDS: KETOROLAC 60 MG/2 ML VIAL 30 MG IV (20:09)
[2018-07-28 20:53] VITALS: BP 119/78; PULSE 71; RESP 14; O2SAT 98
== END 2018-07-28 20:54 | disposition home or self-care (01) ==
PROVIDERS: Emergency Medicine; Emergency Provider Emergency Medicine; Family Provider Family Medicine; PCP Family Medicine
DX: R79.89 Other specified abnormal findings of blood chemistry (principal); N02.9 Recurrent and persistent hematuria with unspecified morphologic changes; S29.011A Strain of muscle and tendon of front wall of thorax, initial encounter; R07.9 Chest pain, unspecified
CPT/HCPCS: 36591; 71046; 80053; 81003; 82550; 82553; 83690; 84443; 84484; 85025; 85379; 85610; 93005; 96374; 99282; 99285; J1885

== ENCOUNTER 2018-08-12 12:40 | Emergency (ER) | payer OTHER, SELFPAY ==
[2018-08-12 12:49] VITALS: BP 122/80; PULSE 68; RESP 16; TEMP 36.7; O2SAT 100
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
[2018-08-12 15:20] VITALS: BP 105/76; PULSE 52; RESP 16; O2SAT 100
[2018-08-12] MEDS: LIDOCAINE PATCH 1 EACH ADH..PATCH 2 EACH TOP (15:36)
[2018-08-12 16:36] VITALS: BP 106/67; PULSE 59; RESP 18; O2SAT 100
== END 2018-08-12 16:36 | disposition home or self-care (01) ==
PROVIDERS: Emergency Provider Internal Medicine; Family Provider Family Medicine; PCP Family Medicine
DX: M25.512 Pain in left shoulder (principal)
CPT/HCPCS: 99283

== ENCOUNTER → 2018-08-15 09:45 | Outpatient (CLI) | payer OTHER, SELFPAY ==
--- NOTE | 2018-08-15 | DI.US.S_ITS ---
LIMITED ULTRASOUND OF LEFT BREAST AND AXILLA: 08/15/2018 CLINICAL: Patient returns today to evaluate a density in the left breast. Pain. Comparison is made to exams dated: 08/15/2018 mammogram, 12/16/2016 mammogram, and 12/13/2015 mammogram - [facility]. Color flow and real-time ultrasound of the left breast upper aspect, retroareolar, and axilla regions were performed on the areas of interest. There is 0.6 cm x 0.3 cm x 0.6 cm oval mass in the posterior left breast at the 1:00 position. This oval mass is hypoechoic with a well-defined boundary. This correlates with mammography findings. Color flow imaging demonstrates that there is no vascularity present. No cystic or solid masses identified in the other areas of left breast pain reported by the patient. No abnormalities were seen sonographically in the left axilla. IMPRESSION: SUSPICIOUS OF MALIGNANCY The 0.6 cm x 0.3 cm x 0.6 cm oval mass is at a low suspicion for malignancy. An ultrasound guided biopsy is recommended. There is no abnormality seen in the left breast to correspond with the areas of pain in the sub-areolar regopm and in the upper inner quadrant, however, clinical followup is recommended. The findings were discussed with the patient at the conclusion of the study by Dr. Foster. This exam was interpreted at Station ID: [id number]. Electronically Signed By: Chris Montes M.D. [email or web address]/:08/15/2018 15:21:05 copy to: Gómez Howard letter sent: Biopsy Required Ultrasound BI-RADS: 4a Suspicious abnormality - low suspicion for malignancy
--- NOTE | 2018-08-15 | DI.MG.S_ITS ---
BILATERAL DIGITAL DIAGNOSTIC MAMMOGRAM 3D/2D: 08/15/2018 CLINICAL: Left breast pain and swelling. Comparison is made to exams dated: 12/16/2016 mammogram and 12/13/2015 mammogram - [facility]. The tissue of both breasts is heterogeneously dense. This may lower the sensitivity of mammography. There is an oval equal density focal asymmetry with an indistinct margin in the left breast at 1 o'clock posterior depth. No other significant masses, calcifications, or other findings are seen in either breast. IMPRESSION: INCOMPLETE: NEEDS ADDITIONAL IMAGING EVALUATION The oval equal density focal asymmetry in the left breast is indeterminate. An ultrasound is recommended. There is no abnormality seen in the left breast to correspond with the pain in the upper inner quadrant, however, ultrasound is recommended. This exam was interpreted at Station ID: [id number]. NOTE: For mammograms, a report in lay terms will be sent to the patient. Approximately 15% of breast malignancies will not be visualized mammographically. In the management of a palpable breast mass, a negative mammogram must not discourage biopsy of a clinically suspicious lesion. Electronically Signed By: Chris coates/mark:08/15/2018 11:42:56 copy to: [facility] BI-RADS Category 0: Incomplete [id number]
== END ==
PROVIDERS: Family Provider Family Medicine; PCP Family Medicine; Visit Provider Family Medicine
DX: R92.8 Other abnormal and inconclusive findings on diagnostic imaging of breast (principal); N64.4 Mastodynia; N63.21 Unspecified lump in the left breast, upper outer quadrant
CPT/HCPCS: 76642; 77066; G0279

== ENCOUNTER → 2018-08-25 18:14 | Outpatient (CLI) | payer OTHER, SELFPAY ==
--- NOTE | 2018-08-25 18:16 | DI.MRI.S_ITS ---
PROCEDURE: MR CHEST WO CON INDICATIONS: Left clavicle pain COMPARISON: [facility], CR, XR CLAVICLE LT, 07/27/2018, 16:44. TECHNIQUE: The patient was placed supine in a body coil. Large field of view coronal STIR sequence was obtained. Following this sequence, the patient was placed prone in a breast coil and an axial STIR sequence was obtained. FINDINGS: Image quality: Excellent. Bones and joints. Left acromioclavicular joint is well-preserved on the current study with no evidence of marrow edema. No fracture or dislocation. Trace amount of fluid within the acromioclavicular joint space is seen. Joint capsule appears intact. No evidence of acromioclavicular joint separation. No suspicious intraosseous lesion is noted. Left clavicle is intact. Sternoclavicular joint is well-preserved. The visualized portion of left humerus and scapula show no gross marrow signal abnormality. Soft tissues: No full-thickness rotator cuff tendon rupture is seen. Suggestion of distal supraspinatus tendinosis near its insertion the humeral head is noted. No significant rotator cuff muscle atrophy. Visualized left pectoralis muscles are normal in size and signal. Neurovascular bundle seen in left axilla showed no gross signal abnormality. IMPRESSION: 1. No evidence of moderate or high-grade acromioclavicular joint separation is seen. Joint capsule appears grossly intact. Trace amount of joint fluid. 2. There is no clavicular fracture. No marrow edema. 3. No gross full-thickness rotator cuff tendon rupture. Suggestion of distal supraspinatus tendinosis. No signal abnormality is seen in rotator cuff muscles or pectoralis muscles. Dictated by: Shekhar Espinoza M.D. on 08/26/2018 at 14:03 Approved by: Shekhar Espinoza M.D. on 08/26/2018 at 14:13
== END ==
PROVIDERS: Family Provider Family Medicine; PCP Family Medicine; Visit Provider Family Medicine
DX: R07.9 Chest pain, unspecified (principal); M25.512 Pain in left shoulder
CPT/HCPCS: 71550

== ENCOUNTER → 2018-10-19 09:51 | Outpatient (CLI) | payer OTHER, SELFPAY ==
[2018-10-19 11:02] LABS: Add Manual Diff / Slide Review NO; Basophils Absolute Auto 0 /uL (0-100); Basophils Percent Auto 0.6 % (0-2); Eosinophils Absolute Auto 100 /uL (0-450); Eosinophils Percent Auto 1.4 % (2-4); Hematocrit 44.4 % (36-46); Lymphocytes Absolute Auto 1300 /uL (1100-4500); Mean Corpuscular HGB Conc 33.7 % (30-36); Mean Corpuscular Hemoglobin 31.4 PG (26-34); Mean Corpuscular Volume 93.2 fL (80-100); Monocytes Absolute Auto 400 /uL (0-900); Monocytes Percent Auto 7.3 % (3-14); Neutrophils Absolute Auto 3500 /uL (1500-7000); Neutrophils Percent Auto 65.7 % (50-75); Platelet Count 250 X10^3/uL (150-400); Red Blood Cell Count 4.76 X10^6/uL (4.0-5.2); Red Cell Distribution Width 13.1 % (11.6-14.8); White Blood Cell Count 5.4 X10^3/uL (4.5-11.0)
[2018-10-19 11:27] LABS: C-Reactive Protein Quant < 0.5 mg/dL (<1.0)
[2018-10-19 11:46] LABS: Erythrocyte Sedimentation Rate 1 MM/HR (0-20)
== END ==
PROVIDERS: PCP Family Medicine; Visit Provider Physical Medicine & Rehabilitation
DX: M89.319 Hypertrophy of bone, unspecified shoulder (principal)
CPT/HCPCS: 36415; 85025; 85651; 86140

== ENCOUNTER → 2018-11-01 07:52 | Outpatient (CLI) | payer OTHER, SELFPAY ==
--- NOTE | 2018-11-01 07:54 | DI.NM.S_ITS ---
PROCEDURE: NM BONE SCAN WHOLE BODY RADIOPHARMACEUTICAL: 20.5 mCi Tc-99m MDP IV. INDICATIONS: Left clavicular pain with edema without trauma TECHNIQUE: Delayed whole-body scintigrams were obtained approximately 3-4 hours after intravenous injection of radiotracer. Anterior and posterior views were acquired from vertex to feet. Additional left and right oblique views of the cervical and thoracic spine were obtained. COMPARISON: [facility], CT, HEAD WITHOUT CONTRAST, 03/06/2016, 9:39. [facility], RG, CT SINUS SCREEN, 11/03/2001, 11:19. [facility], MR, L-SPINE W&WO CONTRAST, 03/05/2016, 11:27. [facility], CT, CT ABDOMEN PELVIS WO/W CON, 07/25/2018, 14:09. [facility], CR, XR CERVICAL SPINE 2V OR 3V, 01/25/2018, 3:35. [facility], CR, XR CLAVICLE LT, 07/27/2018, 16:44. FINDINGS: No abnormal uptake in the clavicle to correlate with pain. There is mildly increased uptake in the left frontal bone. No lesions are identified in skull, sternum, scapulae, ribs, bony pelvis, and visualized shafts of the long bones. There is low level increased uptake in cervical, thoracic and lumbar spine with distribution indistinguishable from degenerative disc and facet disease; early metastasis to spine could be obscured by degenerative changes. There are foci of increased periarticular activity involving shoulders, sternoclavicular joints, hips and SI joints, knees, ankles and feet, compatible with degenerative/arthritic changes. IMPRESSION: 1. No bone scan finding to explain left clavicular pain. 2. Mildly increased uptake in the left frontal bone. This could be related to asymmetric hyperostosis frontalis. Recommend radiographic correlation. 3. Degenerative/arthritic changes as noted. Dictated by: Amanda Armstrong M.D. on 11/01/2018 at 13:37 Approved by: Amanda Armstrong M.D. on 11/01/2018 at 18:49
== END ==
PROVIDERS: Family Provider Family Medicine; PCP Family Medicine; Visit Provider Physical Medicine & Rehabilitation
DX: M25.512 Pain in left shoulder (principal); R60.9 Edema, unspecified; M89.319 Hypertrophy of bone, unspecified shoulder
CPT/HCPCS: 78306; A9503

== ENCOUNTER → 2019-03-31 08:39 | Outpatient (CLI) | payer OTHER, SELFPAY ==
--- NOTE | 2019-03-31 | DI.US.S_ITS ---
PROCEDURE: US THYROID INDICATIONS: DYSPHAGIA, UNSPECIFIED, HYPOTHYROID TECHNIQUE: Real-time scanning was performed of the thyroid gland, with image documentation. COMPARISON: None. FINDINGS: Right: Thyroid lobe measures 4.2 x 1.3 x 1.1 cm, and is homogeneous in echotexture. Left: Thyroid lobe measures 4.1 x 1.1 x 1.4 cm, and is homogenous in echotexture. Isthmus: 2.0 mm thick. IMPRESSION: Normal thyroid. Dictated by: Bhavesh HUGO Interpreted: Omi Jose MD on 03/31/2019 at 9:50 Approved by: Omi Jose M.D. on 03/31/2019 at 13:45
== END ==
PROVIDERS: Family Provider Family Medicine; PCP Family Medicine; Referring Provider Family Medicine; Visit Provider Family Medicine
DX: R13.10 Dysphagia, unspecified (principal); E03.9 Hypothyroidism, unspecified
CPT/HCPCS: 76536

== ENCOUNTER 2019-04-03 10:43 | Emergency (ER) | payer OTHER, SELFPAY ==
[2019-04-03 10:55] VITALS: BP 140/96; PULSE 79; RESP 19; O2SAT 100
[2019-04-03] MEDS: LORazepam 2 MG/ML INJ 1 MG IM (11:05)
--- NOTE | 2019-04-03 11:22 | ED_ITS ---
HPI - Allergic Reaction <DOTTY Shen - Last Filed: 04/03/19 15:27> General Chief complaint: Allergic Reaction Stated complaint: possible reaction to levothyroxine Time Seen by Provider: 04/03/19 11:05 Source: patient Mode of arrival: Ambulatory Limitations: no limitations History of Present Illness HPI narrative: The patient is a 44-year-old female former smoker who presents with her for chief complaint of a medication reaction. She took her 1st dose of increased Synthroid this morning. She states she was increased to 50 mcg of levothyroxine, she states his quadruple her former does. She states she started having a medication reaction where she can not control her arms, felt very uneasy, felt like she is crawling out of her skin and very anxious while at PCPs appointment earlier today. She says that they gave her prescription of Ativan but she did not filled. She went home and her brought her to the emergency department. She states she is concerned that her heart rate on her Fitbit went from 60-80. She denies any drug or alcohol use. She does state that she has a prescription for Adderall, but did not take it today. The only other thing she had eat today was coffee. She took the Synthroid approximately 7:00 a.m.. Related Data Home Medications Medication Instructions Recorded Confirmed dextroamphetamine-amphetamine 30 mg PO QAM 07/28/18 04/03/19 aluminum chloride [Drysol 1 applic TOPICAL DIRECTED 04/03/19 04/03/19 Dab-O-Matic] clonazepam 0.5 mg PO BID 04/03/19 04/03/19 levothyroxine 50 mcg PO DAILY 04/03/19 04/03/19 Previous Rx's Medication Instructions Recorded etodolac 400 mg tablet 400 mg PO BID #60 tab 10/19/18 Allergies Allergy/AdvReac Type Severity Reaction Status Date / Time cefaclor Allergy Mild ITCHING Verified 12/05/18 09:23 Review of Systems <DOTTY Shen - Last Filed: 04/03/19 15:27> Review of Systems Narrative: GENERAL: Denies chills, fatigue, malaise, fever, sweats. HEENT: Denies sinus pain, ear pain, sore throat, difficulty swallowing, dizziness. RESPIRATORY: Denies dyspnea, cough, wheezing, hemoptysis, sputum. CARDIOVASCULAR: Denies chest pain, palpitations, orthopnea, edema, GASTROINTESTINAL: Denies nausea, vomiting, abdominal pain, diarrhea, constipation, melena. : Denies dysuria, frequency, incontinence, hematuria, urinary retention. MUSCULOSKELETAL: denies weakness, joint pain, or bony pain SKIN: Denies rash, skin lesions, or other NEUROLOGIC: See HPI PSYCHIATRIC: No concerning psychosocial issues. 12 point review of systems is negative except for those stated above Patient History <DOTTY Shen - Last Filed: 04/03/19 15:27> Medical History Abscess of pelvis (Acute) Benign hematuria (Acute) Enlargement of left sternoclavicular joint (Acute) Hypothyroidism (Acute) Surgical History History of third molar tooth extraction Status post appendectomy Status post bilateral salpingo-oophorectomy (BSO) (04/03/16) Status post exploratory laparotomy (04/03/16) Status post hysterectomy (04/03/16) Status post laparoscopy Social History Smoking Status: Former smoker Smoking Status: Former smoker alcohol intake frequency: a few times a week Substance Use Type: does not use Exam <DOTTY Shen - Last Filed: 04/03/19 15:27> Narrative Exam Narrative: GENERAL: This is a well-nourished, well-developed patient, appears uncomfortable HEAD: Atraumatic. Normocephalic. No temporal or scalp tenderness. EYES: Pupils equal round and reactive. Extraocular motions intact. No scleral icterus. No injection or drainage. ENT: Nose without bleeding, purulent drainage or septal hematoma. Throat without erythema, tonsillar hypertrophy or exudate. Uvula midline. Airway patent. NECK: Trachea midline. No JVD or lymphadenopathy. Supple, nontender, no meningeal signs. CARDIOVASCULAR: Regular rate and rhythm RESPIRATORY: Clear to auscultation. Breath sounds equal bilaterally. No wheezes, rales, or rhonchi. No cough. No increased respiratory effort. No accessory muscle use. GASTROINTESTINAL: Abdomen soft, non-tender, nondistended. No hepato- splenomegaly, or palpable masses. No guarding. EXTREMITIES: Using bilateral arms and motions about head. Strength is equal upper and lower extremities bilaterally. BACK: Nontender without deformity or crepitance. No flank tenderness. NEURO: AOx3. Tardive dyskinesia mary motions noted bilateral upper extremities. Appears very anxious, slightly teary. SKIN: No rash or erythema. Initial Vital Signs Initial Vital Signs: Vital Signs Pulse Rate 79 04/03/19 10:55 Respiratory Rate 19 04/03/19 10:55 Blood Pressure 140/96 H 04/03/19 10:55 Pulse Oximetry 100 04/03/19 10:55 <Laura Harden DO - Last Filed: 04/03/19 19:57> Initial Vital Signs Initial Vital Signs: Vital Signs Pulse Rate 79 04/03/19 10:55 Respiratory Rate 19 04/03/19 10:55 Blood Pressure 140/96 H 04/03/19 10:55 Pulse Oximetry 100 04/03/19 10:55 Course <DOTTY Shen - Last Filed: 04/03/19 15:27> Orders Ordered: ED Orders 04/03/19 12:20 Complete Blood Count AUTO DIFF Stat Comprehensive Metabolic Panel Stat Thyroid Stimulating Hormone Stat 04/03/19 13:00 Urine Drug Screen, Rapid Stat Urine Microscopic Stat Discontinued Medications Lorazepam (Ativan) 1 mg IM NOW ONE Stop: 04/03/19 11:01 Last Admin: 04/03/19 11:05 Dose: 1 mg Documented by: BTONER Vital Signs Vital signs: Vital Signs - 8 hr 04/03/19 14:15 Pulse Rate 59 L Respiratory Rate 14 Blood Pressure 114/70 Pulse Oximetry 99 <Laura Harden DO - Last Filed: 04/03/19 19:57> Orders Ordered: ED Orders 04/03/19 12:20 Complete Blood Count AUTO DIFF Stat Comprehensive Metabolic Panel Stat Thyroid Stimulating Hormone Stat 04/03/19 13:00 Urine Drug Screen, Rapid Stat Urine Microscopic Stat Discontinued Medications Lorazepam (Ativan) 1 mg IM NOW ONE Stop: 04/03/19 11:01 Last Admin: 04/03/19 11:05 Dose: 1 mg Documented by: BTONER Vital Signs Vital signs: Vital Signs - 8 hr 04/03/19 14:15 Pulse Rate 59 L Respiratory Rate 14 Blood Pressure 114/70 Pulse Oximetry 99 MDM - Allergic Reaction <Laura Valeramer, FISH SMOKER-BC - Last Filed: 04/03/19 15:27> Lab Data Result diagrams: 04/03/19 12:20 04/03/19 12:20 Labs: Lab Results 04/03/19 04/03/19 04/03/19 Range/Units 12:20 12:20 12:20 WBC 7.5 (4.5-11.0) X10^3/uL RBC 4.46 (4.0-5.2) X10^6/uL Hgb 14.1 (12.0-16.0) g/dL Hct 41.3 (36-46) % MCV 92.7 (80-100) fL MCH 31.6 (26-34) PG MCHC 34.1 (30-36) % RDW 12.3 (11.6-14.8) % Plt Count 210 (150-400) X10^3/uL Neut % (Auto) 72.4 (50-75) % Lymph % (Auto) 18.7 L (25-40) % [place] % (Auto) 6.9 (3-14) % Eos % (Auto) 1.4 L (2-4) % Baso % (Auto) 0.6 (0-2) % Neut # (Auto) 5400 (9590-3119) /uL Lymph # (Auto) 1400 (4190-7847) /uL [place] # (Auto) 500 (0-900) /uL Eos # (Auto) 100 (0-450) /uL Baso # (Auto) 0 (0-100) /uL Sodium 139 (137-145) mmol/L Potassium 4.3 (3.4-5.1) mmol/L Chloride 103 (98-107) mmol/L Carbon Dioxide 30 (22-32) mmol/L BUN 20 H (7-17) mg/dL Creatinine 0.60 (0.52-1.04) mg/dL Estimated GFR > 60.0 (>60) mL/min BUN/Creatinine Ratio 33.3 H (6-22) Glucose 86 (70-100) mg/dL Calcium 9.6 (8.4-10.2) mg/dL Total Bilirubin 0.5 (0.2-1.3) mg/dL AST 27 (14-36) IU/L ALT 22 (<35) IU/L Alkaline Phosphatase 69 (38-126) U/L Total Protein 6.8 (6.3-8.2) g/dL Albumin 4.0 (3.5-5.0) g/dL Globulin 2.8 (1.7-4.1) g/dL Albumin/Globulin Ratio 1.4 (1.0-2.8) TSH 3.00 (0.47-4.68) uIU/mL Urine RBC (0-5/HPF) Urine WBC (0-5/HPF) Urine Bacteria (None) Ur Culture Indicated? U Opiates 300ng/mL cut (Negative) Ur Oxycodone Screen (Negative) Urine Methadone Screen (Negative) Ur Barbiturates Screen (Negative) U Tricyclic Antidepress (Negative) Ur Phencyclidine Scrn (Negative) Ur Amphetamines Screen (Negative) U Methamphetamines Scrn (Negative) Ur MDMA Scrn (Ecstasy) (Negative) U Benzodiazepines Scrn (Negative) Urine Cocaine Screen (Negative) U Marijuana (THC) Screen (Negative) 04/03/19 04/03/19 Range/Units 13:00 13:00 WBC (4.5-11.0) X10^3/uL RBC (4.0-5.2) X10^6/uL Hgb (12.0-16.0) g/dL Hct (36-46) % MCV (80-100) fL MCH (26-34) PG MCHC (30-36) % RDW (11.6-14.8) % Plt Count (150-400) X10^3/uL Neut % (Auto) (50-75) % Lymph % (Auto) (25-40) % [place] % (Auto) (3-14) % Eos % (Auto) (2-4) % Baso % (Auto) (0-2) % Neut # (Auto) (7469-5982) /uL Lymph # (Auto) (0989-1212) /uL [place] # (Auto) (0-900) /uL Eos # (Auto) (0-450) /uL Baso # (Auto) (0-100) /uL Sodium (137-145) mmol/L Potassium (3.4-5.1) mmol/L Chloride (98-107) mmol/L Carbon Dioxide (22-32) mmol/L BUN (7-17) mg/dL Creatinine (0.52-1.04) mg/dL Estimated GFR (>60) mL/min BUN/Creatinine Ratio (6-22) Glucose (70-100) mg/dL Calcium (8.4-10.2) mg/dL Total Bilirubin (0.2-1.3) mg/dL AST (14-36) IU/L ALT (<35) IU/L Alkaline Phosphatase (38-126) U/L Total Protein (6.3-8.2) g/dL Albumin (3.5-5.0) g/dL Globulin (1.7-4.1) g/dL Albumin/Globulin Ratio (1.0-2.8) TSH (0.47-4.68) uIU/mL Urine RBC 0-1/hpf (0-5/HPF) Urine WBC None seen (0-5/HPF) Urine Bacteria None seen (None) Ur Culture Indicated? Cult not indicated U Opiates 300ng/mL cut Negative (Negative) Ur Oxycodone Screen Negative (Negative) Urine Methadone Screen Negative (Negative) Ur Barbiturates Screen Negative (Negative) U Tricyclic Antidepress Negative (Negative) Ur Phencyclidine Scrn Negative (Negative) Ur Amphetamines Screen Negative (Negative) U Methamphetamines Scrn Negative (Negative) Ur MDMA Scrn (Ecstasy) Negative (Negative) U Benzodiazepines Scrn Negative (Negative) Urine Cocaine Screen Negative (Negative) U Marijuana (THC) Screen Negative (Negative) Urine Dip Bedside Urine Glucose Negative Bedside Urine Bilirubin - Negative Bedside Urine Ketone - Negative Urine Specific [place] 1.015 Bedside Urine Occult Blood +/- Bedside Urine pH 6.5 Bedside Urine Protein - Negative Bedside Urine Urobilinogen - Negative Bedside Urine Nitrite - Negative Bedside Urine Leukocytes - Negative Esterase MDM Narrative Medical decision making narrative: The patient is a 44 year female with history of hypothyroid who presents with a chief complaint of a medication reaction to Synthroid, which she has been taking before. However dose increased. She presents to the emergency department with tardive dyskinesia like motions with her upper arms. She also feels like she is crawling on her skin, feeling like she wanted to pull out her hair etcetera. She responded very well to lorazepam and Benadryl in the emergency department, stopped her motions, and was able to rest. Labs are grossly within normal limits. TSH is 3.00. I spoke with Dr. Khang vallecillo, who is already sent in a prescription of lorazepam for the patient. Discussed continuing the lorazepam and Benadryl as needed and able. Did discuss holding off on Synthroid at this point time and following up with Dr. Thomas next week. Patient has no questions or concerns upon discharge and states understanding of return precautions as well as follow-up care. Patient has been of no questions or concerns upon discharge and state understanding of return precautions as well as follow-up care <Laura Harden, DO - Last Filed: 04/03/19 19:57> Lab Data Labs: Lab Results 04/03/19 04/03/19 04/03/19 Range/Units 12:20 12:20 12:20 WBC 7.5 (4.5-11.0) X10^3/uL RBC 4.46 (4.0-5.2) X10^6/uL Hgb 14.1 (12.0-16.0) g/dL Hct 41.3 (36-46) % MCV 92.7 (80-100) fL MCH 31.6 (26-34) PG MCHC 34.1 (30-36) % RDW 12.3 (11.6-14.8) % Plt Count 210 (150-400) X10^3/uL Neut % (Auto) 72.4 (50-75) % Lymph % (Auto) 18.7 L (25-40) % [place] % (Auto) 6.9 (3-14) % Eos % (Auto) 1.4 L (2-4) % Baso % (Auto) 0.6 (0-2) % Neut # (Auto) 5400 (7223-2348) /uL Lymph # (Auto) 1400 (9339-1177) /uL [place] # (Auto) 500 (0-900) /uL Eos # (Auto) 100 (0-450) /uL Baso # (Auto) 0 (0-100) /uL Sodium 139 (137-145) mmol/L Potassium 4.3 (3.4-5.1) mmol/L Chloride 103 (98-107) mmol/L Carbon Dioxide 30 (22-32) mmol/L BUN 20 H (7-17) mg/dL Creatinine 0.60 (0.52-1.04) mg/dL Estimated GFR > 60.0 (>60) mL/min BUN/Creatinine Ratio 33.3 H (6-22) Glucose 86 (70-100) mg/dL Calcium 9.6 (8.4-10.2) mg/dL Total Bilirubin 0.5 (0.2-1.3) mg/dL AST 27 (14-36) IU/L ALT 22 (<35) IU/L Alkaline Phosphatase 69 (38-126) U/L Total Protein 6.8 (6.3-8.2) g/dL Albumin 4.0 (3.5-5.0) g/dL Globulin 2.8 (1.7-4.1) g/dL Albumin/Globulin Ratio 1.4 (1.0-2.8) TSH 3.00 (0.47-4.68) uIU/mL Urine RBC (0-5/HPF) Urine WBC (0-5/HPF) Urine Bacteria (None) Ur Culture Indicated? U Opiates 300ng/mL cut (Negative) Ur Oxycodone Screen (Negative) Urine Methadone Screen (Negative) Ur Barbiturates Screen (Negative) U Tricyclic Antidepress (Negative) Ur Phencyclidine Scrn (Negative) Ur Amphetamines Screen (Negative) U Methamphetamines Scrn (Negative) Ur MDMA Scrn (Ecstasy) (Negative) U Benzodiazepines Scrn (Negative) Urine Cocaine Screen (Negative) U Marijuana (THC) Screen (Negative) 04/03/19 04/03/19 Range/Units 13:00 13:00 WBC (4.5-11.0) X10^3/uL RBC (4.0-5.2) X10^6/uL Hgb (12.0-16.0) g/dL Hct (36-46) % MCV (80-100) fL MCH (26-34) PG MCHC (30-36) % RDW (11.6-14.8) % Plt Count (150-400) X10^3/uL Neut % (Auto) (50-75) % Lymph % (Auto) (25-40) % [place] % (Auto) (3-14) % Eos % (Auto) (2-4) % Baso % (Auto) (0-2) % Neut # (Auto) (7568-4727) /uL Lymph # (Auto) (7833-3721) /uL [place] # (Auto) (0-900) /uL Eos # (Auto) (0-450) /uL Baso # (Auto) (0-100) /uL Sodium (137-145) mmol/L Potassium (3.4-5.1) mmol/L Chloride (98-107) mmol/L Carbon Dioxide (22-32) mmol/L BUN (7-17) mg/dL Creatinine (0.52-1.04) mg/dL Estimated GFR (>60) mL/min BUN/Creatinine Ratio (6-22) Glucose (70-100) mg/dL Calcium (8.4-10.2) mg/dL Total Bilirubin (0.2-1.3) mg/dL AST (14-36) IU/L ALT (<35) IU/L Alkaline Phosphatase (38-126) U/L Total Protein (6.3-8.2) g/dL Albumin (3.5-5.0) g/dL Globulin (1.7-4.1) g/dL Albumin/Globulin Ratio (1.0-2.8) TSH (0.47-4.68) uIU/mL Urine RBC 0-1/hpf (0-5/HPF) Urine WBC None seen (0-5/HPF) Urine Bacteria None seen (None) Ur Culture Indicated? Cult not indicated U Opiates 300ng/mL cut Negative (Negative) Ur Oxycodone Screen Negative (Negative) Urine Methadone Screen Negative (Negative) Ur Barbiturates Screen Negative (Negative) U Tricyclic Antidepress Negative (Negative) Ur Phencyclidine Scrn Negative (Negative) Ur Amphetamines Screen Negative (Negative) U Methamphetamines Scrn Negative (Negative) Ur MDMA Scrn (Ecstasy) Negative (Negative) U Benzodiazepines Scrn Negative (Negative) Urine Cocaine Screen Negative (Negative) U Marijuana (THC) Screen Negative (Negative) Urine Dip Bedside Urine Glucose Negative Bedside Urine Bilirubin - Negative Bedside Urine Ketone - Negative Urine Specific [place] 1.015 Bedside Urine Occult Blood +/- Bedside Urine pH 6.5 Bedside Urine Protein - Negative Bedside Urine Urobilinogen - Negative Bedside Urine Nitrite - Negative Bedside Urine Leukocytes - Negative Esterase Discharge Plan Departure Patient Disposition: Home Clinical Impression: Medication reaction Qualifiers: Encounter type: initial encounter Qualified Code(s): T50.905A - Adverse effect of unspecified drugs, medicaments and biological substances, initial encounter Discharge Date/Time: 04/03/19 14:15 Instructions: DI for General Allergic Reactions, DI for Safely Taking and Storing Medications -- Adults, DI for Adverse Drug Reaction -- Other Activity Restrictions/Additional Instructions: As discussed, please stop taking your Synthroid. Please use the prescription that Dr. Thomas gave as needed per his instructions. You can also take Benadryl. Please push fluids and rest. Please follow-up with Dr. Thomas in a week or so. I spoke with him and let him know your in the emergency department today. Please come back to the emergency department for any acute concerns. Prescriptions: No Action dextroamphetamine-amphetamine 30 mg capsule,extended release 24hr 30 mg PO QAM RF: 0 clonazepam 0.5 mg tablet 0.5 mg PO BID RF: 0 aluminum chloride [Drysol Dab-O-Matic] 20 % solution 1 applic TOPICAL DIRECTED RF: 0 levothyroxine 50 mcg tablet 50 mcg PO DAILY RF: 0 etodolac [Lodine] 400 mg tablet 400 mg PO BID Qty: 60 RF: 2 Referrals: Fransico Thomas MD [Primary Care Provider] -
[2019-04-03 11:41] VITALS: BP 140/96; PULSE 54; RESP 14; O2SAT 100
[2019-04-03 12:27] LABS: Add Manual Diff / Slide Review NO; Basophils Absolute Auto 0 /uL (0-100); Basophils Percent Auto 0.6 % (0-2); Eosinophils Absolute Auto 100 /uL (0-450); Eosinophils Percent Auto 1.4 % (2-4); Hematocrit 41.3 % (36-46); Hemoglobin 14.1 g/dL (12.0-16.0); Lymphocytes Absolute Auto 1400 /uL (1100-4500); Lymphocytes Percent Auto 18.7 % (25-40); Mean Corpuscular HGB Conc 34.1 % (30-36); Mean Corpuscular Hemoglobin 31.6 PG (26-34); Mean Corpuscular Volume 92.7 fL (80-100); Monocytes Absolute Auto 500 /uL (0-900); Monocytes Percent Auto 6.9 % (3-14); Neutrophils Absolute Auto 5400 /uL (1500-7000); Neutrophils Percent Auto 72.4 % (50-75); Platelet Count 210 X10^3/uL (150-400); Red Blood Cell Count 4.46 X10^6/uL (4.0-5.2); Red Cell Distribution Width 12.3 % (11.6-14.8); White Blood Cell Count 7.5 X10^3/uL (4.5-11.0)
[2019-04-03 12:36] LABS: Alanine Aminotransferase 22 IU/L (<35); Albumin Globulin Ratio 1.4 (1.0-2.8); Alkaline Phosphatase 69 U/L (38-126); Aspartate Aminotransferase 27 IU/L (14-36); BUN Creatinine Ratio 33.3 (6-22); Bilirubin Total 0.5 mg/dL (0.2-1.3); Blood Urea Nitrogen 20 mg/dL (7-17); Calcium 9.6 mg/dL (8.4-10.2); Carbon Dioxide 30 mmol/L (22-32); Chloride 103 mmol/L (98-107); Estimated Glomerular Filt Rate > 60.0 mL/min (>60); Globulin 2.8 g/dL (1.7-4.1); Glucose 86 mg/dL (70-100); HEMOLYSIS < 15 (0-50); Potassium 4.3 mmol/L (3.4-5.1); Sodium 139 mmol/L (137-145); Total Protein 6.8 g/dL (6.3-8.2)
[2019-04-03 13:10] LABS: Bacteria Urine None Seen; WBC Urine None Seen (0-5/HPF)
[2019-04-03 13:11] LABS: UR Morphine/Opiate cutoff 300 Negative (Negative); Ur Creatinine Abnormal (Normal); Ur Specific Gravity Normal (Normal); Urine Amphetamines Negative (Negative); Urine Barbiturates Negative (Negative); Urine Benzodiazepines Negative (Negative); Urine Cocaine Negative (Negative); Urine MDMA Negative (Negative); Urine Methadone Negative (Negative); Urine Methamphetamines Negative (Negative); Urine Oxycodone Negative (Negative); Urine Phencyclidine Negative (Negative); Urine Tetrahydrocannabinol Negative (Negative); Urine Tricyclic Antidepressant Negative (Negative); Urine pH Normal (Normal)
[2019-04-03 13:19] LABS: Culture Indicated Urine Cult Not Indicated; RBC Urine 0-1/HPF (0-5/HPF)
[2019-04-03 14:15] VITALS: BP 114/70; PULSE 59; RESP 14; O2SAT 99
== END 2019-04-03 14:15 | disposition home or self-care (01) ==
PROVIDERS: Emergency Provider Nurse Practitioner Family; Family Provider Family Medicine; PCP Family Medicine
DX: R20.8 Other disturbances of skin sensation (principal); F41.8 Other specified anxiety disorders; T38.1X5A Adverse effect of thyroid hormones and substitutes, initial encounter
CPT/HCPCS: 36415; 80053; 80305; 81003; 81015; 84443; 85025; 96372; 99283; J2060

== ENCOUNTER → 2019-12-25 08:08 | Outpatient (CLI) | payer OTHER, SELFPAY ==
--- NOTE | 2019-12-25 | DI.US.S_ITS ---
PROCEDURE: US ABDOMEN COMPLETE INDICATIONS: ABDOMINAL PAIN TECHNIQUE: Real-time scanning was performed of the abdominal and retroperitoneal organs, with image documentation. COMPARISON: [facility], CT, CT ABDOMEN PELVIS WO/W CON, 07/25/2018, 14:09. [facility], US, US ABDOMEN COMPLETE, 07/18/2018, 8:05. FINDINGS: Liver: Liver is normal in size. Within the medial left liver, there is a cyst again seen 3. Gallbladder: No findings of gallstones or sludge are seen. The gallbladder wall is not thickened, measuring 3 mm or less. No specific pericholecystic fluid is seen. The sonographic Dupree sign is negative. Biliary ducts: Intrahepatic bile ducts are non-dilated. Extrahepatic bile duct caliber measures 4 mm. Normal is 6-7 mm or less in diameter, or 10 mm or less post-cholecystectomy. Pancreas: Visualized portions of the pancreas are sonographically normal. Spleen: Spleen is normal in size and homogeneous in echotexture. Kidneys: Kidneys are normal in size and echotexture. Right kidney measures 9.9 cm long; left kidney measures 10.2 cm long. No hydronephrosis or nephrolithiasis. No solid masses. Within the medial superior aspect the right kidney, there is a complex cyst with septations, without abnormal vascularity measures mm. The known left kidney superior pole cyst seen current study. Aorta: Visualized aorta is normal in caliber at less than 3 cm. Iliacs: Proximal common iliac arteries are normal in caliber at less than 2.5 cm. IVC: Intrahepatic inferior vena cava is patent. Miscellaneous: No free abdominal fluid. IMPRESSION: The gallbladder demonstrates a normal sonographic appearance. No biliary dilatation is seen. Incidental note is made of: Left liver cyst Right kidney cyst, with septation Dictated by: Mendoza Manuel M.D. on 12/25/2019 at 8:34 Approved by: Menodza Manuel M.D. on 12/25/2019 at 8:38
== END ==
PROVIDERS: Family Provider Family Medicine; PCP Family Medicine; Referring Provider Family Medicine; Visit Provider Family Medicine
DX: R10.9 Unspecified abdominal pain (principal)
CPT/HCPCS: 76700

== ENCOUNTER 2022-01-05 04:44 | Emergency (ER) | payer OTHER, SELFPAY ==
[2022-01-05 04:49] VITALS: BP 123/82; PULSE 62; RESP 16; TEMP 36.3; O2SAT 100; BMI 25.8
--- NOTE | 2022-01-05 05:13 | DI.CT.S_ITS ---
PROCEDURE: CT ABDOMEN PELVIS W CON INDICATIONS: pain bloating TECHNIQUE: After the administration of intravenous contrast, axial sections acquired from the lung bases to the pubic symphysis. Coronal and sagittal reformats were performed. For radiation dose reduction, the following was used: automated exposure control, adjustment of mA and/or kV according to patient size. COMPARISON: [facility], CT, ABDOMEN/PELVIS WITH CONTRAST, 08/10/2016, 14:20. FINDINGS: Image quality: Excellent Lower chest: Unremarkable Solid organs: Similar cyst in segment 4 of the liver. Liver is otherwise unremarkable. Subcentimeter lesions are too small to characterize. Gallbladder and biliary tree are unremarkable. No pathologic dilation of the pancreatic duct. No splenomegaly. No adrenal nodule. No hydronephrosis. Subcentimeter lesions are too small to characterize. Vessels and lymph nodes: The main portal vein is patent. No abdominal aortic aneurysm or pathologic adenopathy by size criteria. Bowel and peritoneum: No bowel obstruction. Small amount pelvic free fluid is present. Colonic diverticula. Body wall: Unremarkable Pelvis: Bladder is unremarkable. Multiloculated are cystic lesions in the right adnexal region. Prominent appearance of the vaginal cuff as before. Bones: No acute or suspicious osseous finding. IMPRESSION: No acute abnormality identified in the abdomen or pelvis. There is a multiloculated cystic lesion in the right adnexal region. In 2017, a suspected corpus luteum cyst was seen. If patient does not have a pelvic surgical history and is premenopausal, this is likely physiologic. Otherwise, consider correlation with ultrasound or MRI. Overall agree with prelim report, with the above comments. Dictated by: Arnulfo Pino M.D. on 01/05/2022 at 8:00 Approved by: Arnulfo Pino M.D. on 01/05/2022 at 8:09
--- NOTE | 2022-01-05 05:16 | ED.ABDPAIN ---
HPI - Abdominal Pain General Chief Complaint: Abdominal Pain Stated Complaint: abd pain, lower back pain, urine smell like sulfur Time Seen by Provider: 01/05/22 05:04 Source: patient Mode of arrival: Ambulatory History of Present Illness HPI narrative: Patient is a 46-year-old female history of hypothyroid presenting today with a variety of complaints. She states over the last 3 months she has gained 30 lb tonight she feels like she is having abdominal burning and pain. She has been having regular bowel movements. It did mild nausea no significant vomiting. She denies any chest pain or palpitations. She says that it just does not feel right. She previously had an ovarian abscess and had complications from that surgery. She is quite anxious. She states that she is not taking Synthroid because she had a reaction and is taking a different supplement. She also states that she has some low back pain it might be her kidneys. She states that her urine smells like sulfur but denies any painful or frequent urination. Most of the symptoms have been ongoing for number of months however tonight she feels like her abdominal pain and bloating is a little bit worse Related Data Home Medications Medication Instructions Recorded Confirmed dextroamphetamine-amphetamine ER 30 mg PO QAM 07/28/18 04/03/19 30 mg 24hr capsule,extend release aluminum chloride 20 % topical 1 applic topical DIRECTED 04/03/19 04/03/19 solution (Drysol Dab-O-Matic) clonazepam 0.5 mg tablet 0.5 mg PO BID 04/03/19 04/03/19 levothyroxine 50 mcg tablet 50 mcg PO DAILY 04/03/19 04/03/19 Previous Rx's Medication Instructions Recorded etodolac 400 mg tablet (Lodine) 400 mg PO BID #60 tabs 10/19/18 Allergies Allergy/AdvReac Type Severity Reaction Status Date / Time cefaclor Allergy Mild ITCHING Verified 12/05/18 09:23 Review of Systems Review of Systems Narrative: GENERAL: Denies chills, fatigue, malaise, fever, sweats, travel HEENT: Denies sinus pain, ear pain, sore throat, difficulty swallowing, neck pain RESPIRATORY: Denies dyspnea, cough, wheezing, hemoptysis, sputum. CARDIOVASCULAR: Denies chest pain, palpitations, orthopnea, edema GASTROINTESTINAL: Denies nausea, vomiting, abdominal pain, diarrhea, constipation, melena. : Denies dysuria, frequency, incontinence, hematuria, urinary retention, flank pain. MUSCULOSKELETAL: Denies weakness, joint pain, or bony pain SKIN: No rash, no erythema, no pruritus NEUROLOGIC: Denies weakness, dizziness, headache, numbness, change in speech, confusion PSYCHIATRIC: No concerning psychosocial issues. 12 point review of systems is negative except for those stated above and HPI Patient History Medical History (Updated 01/05/22 @ 06:43 by Vane Gooden DO) Abscess of pelvis Benign hematuria Enlargement of left sternoclavicular joint Hypothyroidism Surgical History History of third molar tooth extraction Status post appendectomy Status post bilateral salpingo-oophorectomy (BSO) (04/03/16) Status post exploratory laparotomy (04/03/16) Status post hysterectomy (04/03/16) Status post laparoscopy Social History Smoking Status: Former smoker Smoking Status: Former smoker alcohol intake frequency: a few times a week Substance Use Type: does not use Exam Initial Vital Signs Initial Vital Signs: Vital Signs Temperature 97.3 F L 01/05/22 04:49 Pulse Rate 62 01/05/22 04:49 Respiratory Rate 16 01/05/22 04:49 Blood Pressure 123/82 01/05/22 04:49 Pulse Oximetry 100 01/05/22 04:49 Oxygen Delivery Method 01/05/22 04:49 GENERAL: Alert very well appearing 46-year-old female HEENT: Head atraumatic,EOMI, pupils reactive, face symmetric, [moist] mucous membranes CARDIOVASCULAR: Regular rate and rhythm without murmurs, rubs or gallops. RESPIRATORY: Breath sounds equal bilaterally, no wheezes rales or rhonchi. ABDOMEN: Soft, nontender. Normoactive bowel sounds all 4 quadrants. No guarding or rebound. EXTREMITIES: Normal range of motion, no clubbing or edema. Neurovascularly intact NEUROLOGICAL: Alert and oriented x4.Normal gait and speech. SKIN: Warm, dry, no laceration, no petechiae, no rashes or lesions. Course Orders Ordered: ED Orders 01/05/22 05:13 CT abdomen pelvis w con Stat 01/05/22 05:15 Complete Blood Count AUTO DIFF Stat Comprehensive Metabolic Panel Stat Lipase Stat TSH [Thyroid Stimulating Hormone] Stat Discontinued Medications Ketorolac Tromethamine (Ketorolac 30 Mg/Ml Vial) 15 mg IV NOW ONE Stop: 01/05/22 06:40 Last Admin: 01/05/22 06:46 Dose: 15 mg Vital Signs Vital signs: Vital Signs - 8 hr 01/05/22 04:49 Temperature 97.3 F L Pulse Rate 62 Respiratory Rate 16 Blood Pressure 123/82 Pulse Oximetry 100 Oxygen Delivery Method Room Air MDM - Abdominal Pain Lab Data Result diagrams: 01/05/22 05:15 01/05/22 05:15 Labs: Lab Results 01/05/22 01/05/22 01/05/22 Range/Units 05:15 05:15 05:15 WBC 7.3 (4.5-11.0) X10^3/uL RBC 4.60 (4.0-5.2) X10^6/uL Hgb 14.5 (12.0-16.0) g/dL Hct 42.2 (36-46) % MCV 91.7 (80-100) fL MCH 31.5 (26-34) PG MCHC 34.4 (30-36) % RDW 12.8 (11.6-14.8) % Plt Count 259 (150-400) X10^3/uL Neut % (Auto) 62.5 (50-75) % Lymph % (Auto) 26.3 (25-40) % [place] % (Auto) 6.7 (3-14) % Eos % (Auto) 3.7 (2-4) % Baso % (Auto) 0.8 (0-2) % Neut # (Auto) 4500 (8221-8140) /uL Lymph # (Auto) 1900 (8857-7379) /uL [place] # (Auto) 500 (0-900) /uL Eos # (Auto) 300 (0-450) /uL Baso # (Auto) 100 (0-100) /uL Sodium 138 (137-145) mmol/L Potassium 3.5 (3.4-5.1) mmol/L Chloride 103 (98-107) mmol/L Carbon Dioxide 29 (22-32) mmol/L BUN 9 (7-17) mg/dL Creatinine 0.63 (0.52-1.04) mg/dL Estimated GFR > 60 (>60) mL/min BUN/Creatinine Ratio 14.3 (6-22) Glucose 90 (70-100) mg/dL Calcium 8.6 (8.4-10.2) mg/dL Total Bilirubin 0.5 (0.2-1.3) mg/dL AST 24 (14-36) IU/L ALT 22 (<35) IU/L Alkaline Phosphatase 73 (38-126) U/L Total Protein 6.7 (6.3-8.2) g/dL Albumin 3.9 (3.5-5.0) g/dL Globulin 2.8 (1.7-4.1) g/dL Albumin/Globulin Ratio 1.4 (1.0-2.8) Lipase 75 (23-300) U/L TSH 5.72 H (0.47-4.68) uIU/mL Point of care testing: Point of Care Testing Test Results Negative Urine Dip Bedside Urine Glucose Negative Bedside Urine Bilirubin - Negative Bedside Urine Ketone - Negative Urine Specific [place] 1.010 Bedside Urine Occult Blood +/- Bedside Urine pH 6.5 Bedside Urine Protein - Negative Bedside Urine Urobilinogen - Negative Bedside Urine Nitrite - Negative Bedside Urine Leukocytes - Negative Esterase Imaging Data CT scan - abdomen/pelvis: Radiologist's Impression: Preliminary report: Multiloculated cystic right adnexal nodule with trace free fluid in the pelvis. Given for history of bilateral oophorectomy this finding is concerning for neoplastic process. Sigmoid diverticulosis MDM Narrative Medical decision making narrative: The patient had a left oophorectomy and hysterectomy but continues to have a right ovary, miss information in CT report. CT does show a multiloculated cystic right adnexal nodule. This is most likely a cyst and not and neoplastic process. She is having abdominal discomfort in her upper epigastric area very minimal pain in her right lower quadrant. At this time I do not think this is related. Her TSH is also found to be 5.7 she is not treating it is similar to what it was a few years ago. At this time I do not have an explanation for her bloating or abdominal discomfort. Differential diagnosis included is cholelithiasis cholecystitis, pancreatitis or bowel obstruction, appendicitis, diverticulitis Discharge Plan Departure Patient Disposition: Home Clinical Impression: Hypothyroid Instructions: Hypothyroidism Activity Restrictions/Additional Instructions: *You have been diagnosed with hypothyroid *What to do: At this time is your blood work and CT are overall reassuring. Your TSH which is measured her thyroid today is 5.7, please discuss this with her PCP in regard on how he would like to treat this it may be causing some of your problems. *Continue to take medications as directed *Follow up with your primary care provider in 2-3 days or call [phone] *Return to ER if you should have any new, worsening or concerning symptoms Prescriptions: No Action dextroamphetamine-amphetamine 30 mg capsule,extended release 24hr 30 mg PO QAM clonazepam 0.5 mg tablet 0.5 mg PO BID aluminum chloride [Drysol Dab-O-Matic] 20 % solution 1 applic TOPICAL DIRECTED levothyroxine 50 mcg tablet 50 mcg PO DAILY etodolac [Lodine] 400 mg tablet 400 mg PO BID Qty: 60 2RF Referrals: Fransico Thomas MD [Primary Care Provider] -
[2022-01-05 05:29] LABS: Add Manual Diff / Slide Review NO; Basophils Absolute Auto 100 /uL (0-100); Basophils Percent Auto 0.8 % (0-2); Eosinophils Absolute Auto 300 /uL (0-450); Eosinophils Percent Auto 3.7 % (2-4); Hematocrit 42.2 % (36-46); Hemoglobin 14.5 g/dL (12.0-16.0); Lymphocytes Absolute Auto 1900 /uL (1100-4500); Lymphocytes Percent Auto 26.3 % (25-40); Mean Corpuscular HGB Conc 34.4 % (30-36); Mean Corpuscular Hemoglobin 31.5 PG (26-34); Mean Corpuscular Volume 91.7 fL (80-100); Monocytes Absolute Auto 500 /uL (0-900); Monocytes Percent Auto 6.7 % (3-14); Neutrophils Absolute Auto 4500 /uL (1500-7000); Neutrophils Percent Auto 62.5 % (50-75); Platelet Count 259 X10^3/uL (150-400); Red Cell Distribution Width 12.8 % (11.6-14.8); White Blood Cell Count 7.3 X10^3/uL (4.5-11.0)
[2022-01-05 05:37] LABS: Alanine Aminotransferase 22 IU/L (<35); Albumin 3.9 g/dL (3.5-5.0); Albumin Globulin Ratio 1.4 (1.0-2.8); Alkaline Phosphatase 73 U/L (38-126); Aspartate Aminotransferase 24 IU/L (14-36); BUN Creatinine Ratio 14.3 (6-22); Bilirubin Total 0.5 mg/dL (0.2-1.3); Blood Urea Nitrogen 9 mg/dL (7-17); Calcium 8.6 mg/dL (8.4-10.2); Carbon Dioxide 29 mmol/L (22-32); Chloride 103 mmol/L (98-107); Estimated Glomerular Filt Rate > 60 mL/min (>60); Globulin 2.8 g/dL (1.7-4.1); Glucose 90 mg/dL (70-100); HEMOLYSIS < 15 (0-50); Lipase 75 U/L (23-300); Potassium 3.5 mmol/L (3.4-5.1); Sodium 138 mmol/L (137-145); Total Protein 6.7 g/dL (6.3-8.2)
[2022-01-05 06:17] LABS: Thyroid Stimulating Hormone 5.72 uIU/mL (0.47-4.68)
[2022-01-05] MEDS: KETOROLAC 30 MG/ML VIAL 15 MG IV (06:46)
[2022-01-05 07:01] VITALS: BP 128/74; PULSE 68; RESP 14; TEMP 36.5; O2SAT 98
[2022-01-05 13:51] LABS: Free T3, Triiodothyronine Free 2.95 pg/mL (2.77-5.27); Free T4, Direct Thyroxine 0.86 ng/dL (0.78-2.19)
== END 2022-01-05 07:00 | disposition home or self-care (01) ==
PROVIDERS: Emergency Provider Emergency Medicine; Family Provider Family Medicine; PCP Family Medicine
DX: E03.9 Hypothyroidism, unspecified (principal); R10.13 Epigastric pain; M54.50 Low back pain, unspecified
CPT/HCPCS: 36415; 74177; 80053; 81003; 81025; 83690; 84439; 84443; 84481; 85025; 96374; 99284; J1885; Q9967

== ENCOUNTER → 2022-01-13 12:34 | Outpatient (CLI) | payer OTHER, SELFPAY ==
--- NOTE | 2022-01-13 12:36 | DI.US.S_ITS ---
PROCEDURE: US ABDOMEN COMPLETE INDICATIONS: Unspecified abdominal pain TECHNIQUE: Real-time scanning was performed of the abdominal and retroperitoneal organs, with image documentation. COMPARISON: [facility], , US ABDOMEN COMPLETE, 12/25/2019, 8:37. FINDINGS: Liver: Liver is normal in size and homogeneous in echotexture. There is a 0.4 x 0.6 x 0.5 cm hyperechoic lesion adjacent to the gallbladder suggesting the presence of a small subcentimeter hemangioma. Gallbladder: The gallbladder wall measures 1.6 mm in diameter. No stones, sludge, pericholecystic fluid, or sonographic Dupree sign. Biliary ducts: Intrahepatic bile ducts are non-dilated. Extrahepatic bile duct caliber measures 4.0 mm. Normal is 6-7 mm or less in diameter, or 10 mm or less post-cholecystectomy. Pancreas: Visualized portions of the pancreas are sonographically normal. Spleen: Spleen is normal in size and homogeneous in echotexture. Kidneys: Kidneys are normal in size and echotexture. Right kidney measures 10.2 cm long; left kidney measures 9.8 cm long. No hydronephrosis or nephrolithiasis. No solid masses. The previously visualized right complex cyst is not visualized on the current study. Aorta: Visualized aorta is normal in caliber at less than 3 cm. Iliacs: Proximal common iliac arteries are normal in caliber at less than 2.5 cm. IVC: Intrahepatic inferior vena cava is patent. Miscellaneous: No free abdominal fluid. IMPRESSION: 1. No cholelithiasis or findings to suggest choledocholithiasis or acute cholecystitis. 2. Probable subcentimeter hepatic hemangioma near the gallbladder fossa. 3-6 month sonographic follow-up recommended to ensure stability. Dictated by: Shelia Banks M.D. on 01/13/2022 at 15:04 Approved by: Shelia Banks M.D. on 01/13/2022 at 15:08
== END ==
PROVIDERS: Family Provider Family Medicine; PCP Family Medicine; Referring Provider Family Medicine; Visit Provider Family Medicine
DX: R10.9 Unspecified abdominal pain (principal)
CPT/HCPCS: 76700

== ENCOUNTER → 2022-04-02 08:05 | Outpatient (CLI) | payer OTHER, SELFPAY ==
--- NOTE | 2022-04-02 | DI.MRI.S_ITS ---
PROCEDURE: MR PELVIS WO CON INDICATIONS: Other ovarian cyst, right side TECHNIQUE: Coronal HASTE, sagittal breath-hold T2 FSE; axial T1 FSE with and without fat saturation through the pelvis. Optional long- and short-axis uterine nonbreath-hold T2 FSE through the uterus. Sagittal or axial dynamic VIBE during administration of contrast. Post-contrast axial or coronal VIBE/2-D FLASH with fat saturation from the iliac crests to the symphysis. Optional diffusion weighted imaging and ADC may be performed. COMPARISON: [facility], CT, CT ABDOMEN PELVIS W CON, 01/05/2022, 5:21. [facility] Ultrasound, US, US PELVIC COMPLETE WITH TRANSVAGINAL, 03/23/2022, 13:28. FINDINGS: Image quality: Excellent. Uterus: Absent. Adnexa: Right ovary measures 2.6 x 2.4 x 2.3 cm. A few small subcentimeter follicles. No intrinsic T1 hyperintense cysts. No T2 shading. The previously seen 1.6 cm right ovarian cyst is likely resolved. Left ovary is not identified. Urinary system: Bladder wall is normal in thickness. Distal ureters are non distended. Urethra appears normal in morphology. Nodes and vessels: No pelvic or inguinal adenopathy by size criteria. Iliac vessels are normal in size. Prominent pelvic veins. Bowel and peritoneum: No pathologic free pelvic fluid. Inferior colon and small bowel loops are normal in caliber. Diverticulosis. Soft tissues: No inguinal hernias. No findings of pelvic floor incompetence in the absence of provocation. Bones: Marrow demonstrates normal overall signal. IMPRESSION: 1. Suspect resolution of the previous right ovarian cyst. No endometrioma demonstrated. 2. Left ovary is not seen. 3. Post hysterectomy. Dictated by: Chito Moore M.D. on 04/02/2022 at 9:56 Approved by: Chito Moore M.D. on 04/02/2022 at 10:09
== END ==
PROVIDERS: Family Provider Family Medicine; PCP Family Medicine; Referring Provider Nurse Practitioner; Visit Provider Nurse Practitioner
DX: N83.291 Other ovarian cyst, right side (principal); Z90.710 Acquired absence of both cervix and uterus
CPT/HCPCS: 72195

== ENCOUNTER 2022-06-24 05:21 | Emergency (ER) | payer OTHER, SELFPAY ==
[2022-06-24 05:25] VITALS: BP 112/60; PULSE 63; RESP 18; TEMP 36.8; O2SAT 100; BMI 25.0
--- NOTE | 2022-06-24 05:27 | ED_ITS ---
HPI - General Adult General Chief complaint: Extremity Injury, Upper Stated complaint: possible broken rt wrist Time Seen by Provider: 06/24/22 05:26 History of Present Illness HPI narrative: 47-year-old female former smoker with noncontributory medical history presents with a chief complaint of a right wrist injury after a fall last night. She was reaching to adjust something on her deck when she slipped and fell onto an outstretched right wrist. She denies pain in her right wrist with any range of motion and improvement with rest. She denies numbness, tingling or weakness. She denies any elbow or shoulder pain. She denies any head, neck or back injury. She has no lower extremity injury. In an unrelated issue she was mowing her lawn the prior day and feels like she may have gotten something in her right eye. She has burning sensation and is concerned that she may have scratched her eye Related Data Home Medications Medication Instructions Recorded Confirmed dextroamphetamine-amphetamine ER 30 mg PO QAM 07/28/18 04/03/19 30 mg 24hr capsule,extend release aluminum chloride 20 % topical 1 applic topical DIRECTED 04/03/19 04/03/19 solution (Drysol Dab-O-Matic) clonazepam 0.5 mg tablet 0.5 mg PO BID 04/03/19 04/03/19 levothyroxine 50 mcg tablet 50 mcg PO DAILY 04/03/19 04/03/19 Previous Rx's Medication Instructions Recorded etodolac 400 mg tablet (Lodine) 400 mg PO BID #60 tabs 10/19/18 Allergies Allergy/AdvReac Type Severity Reaction Status Date / Time cefaclor Allergy Mild ITCHING Verified 12/05/18 09:23 Review of Systems Review of Systems Narrative: GENERAL: Denies chills, fatigue, malaise, fever, sweats. HEENT: See HPI RESPIRATORY: Denies dyspnea, cough, wheezing, hemoptysis, sputum. CARDIOVASCULAR: Denies chest pain, palpitations, orthopnea, edema, GASTROINTESTINAL: Denies nausea, vomiting, abdominal pain, diarrhea, constipation, melena. : Denies dysuria, frequency, incontinence, hematuria, urinary retention. MUSCULOSKELETAL: d see HPI SKIN: Denies rash, skin lesions, or other NEUROLOGIC: Denies weakness, headache, numbness, change in speech, confusion, seizures, incoordination. PSYCHIATRIC: No concerning psychosocial issues. 12 point review of systems is negative except for those stated above Patient History Medical History (Updated 06/24/22 @ 05:56 by Balbir Fine DO) Abscess of pelvis Benign hematuria Enlargement of left sternoclavicular joint Hypothyroidism Surgical History History of third molar tooth extraction Status post appendectomy Status post bilateral salpingo-oophorectomy (BSO) (04/03/16) Status post exploratory laparotomy (04/03/16) Status post hysterectomy (04/03/16) Status post laparoscopy Social History Smoking Status: Former smoker Smoking Status: Former smoker alcohol intake frequency: a few times a week Substance Use Type: does not use Exam Narrative Exam Narrative: GEN: AOx3 and in mild distress EYES: Pupils are equal, round, and reactive to light and accommodation. Extraoccular muscles are intact bilaterally. There is no subconjunctival hemorrhage or exudate. Proparacaine instilled, upper lid everted and a very small piece of organic material removed from under the upper lid. This is f ollowed with a fluorescein examination under UV light and no dye uptake is noted CHEST: Lungs are clear to auscultation bilaterally and free of wheezes, rales, or rhonchi. Heart rate is regular rhythm, there are no murmurs, clicks, rubs, or gallops. There is no chest wall tenderness. ABD: Abdomen is soft and nontender. There is no guarding or rebound. Bowel sounds are normal in all 4 quadrants. There is no mass or organomegaly. EXT: Full but painful range of motion of the right wrist without obvious deformity, this is closed, isolated and neurovascularly intact. No pain in the elbow or shoulder. SKIN: Warm, pink, and dry. No erythema or rash Initial Vital Signs Initial Vital Signs: Vital Signs Temperature 98.3 F 06/24/22 05:25 Pulse Rate 63 06/24/22 05:25 Respiratory Rate 18 06/24/22 05:25 Blood Pressure 112/60 06/24/22 05:25 Pulse Oximetry 100 06/24/22 05:25 Oxygen Delivery Method Room Air 06/24/22 05:25 Procedures Orthopedic Splinting/Casting Injury #1: Side: right Upper Extremity Injury Location: wrist Upper Extremity Immobilizer: thumb spica Post splinting neuro exam: intact Post splinting vascular exam: intact Placed by: Nursing Course Orders Ordered: Discontinued Medications Fluorescein Sodium (Fluorescein 1 Mg Strip) 1 mg EYE-RIGHT NOW ONE Stop: 06/24/22 05:35 Last Admin: 06/24/22 05:40 Dose: 1 mg Documented By: AZAM Proparacaine HCl (Proparacaine 0.5% Ophth [place]) 1 drops EYE-RIGHT NOW ONE Stop: 06/24/22 05:35 Last Admin: 06/24/22 05:39 Dose: 1 box Documented By: AZAM Medical Decision Making MDM Narrative Medical decision making narrative: [47] year old patient presents with fall with right wrist pain and also questionable foreign body right eye Multiple etiologies for patient's symptoms considered including, but not limited to: [Distal radius fracture, scaphoid injury, other carpal injury, sprain versus other] Prior Charts reviewed in our EMR Primary Historian: patient Imaging reviewed: No obvious fracture or dislocation Patient's symptoms improved over duration of stay with above-stated therapies. Findings and discharge diagnosis discussed with patient/family followed by verbalization of understanding Return precautions discussed with patient/family whom verbalize understanding of diagnosis and plan Discharge Plan Departure Patient Disposition: Home Clinical Impression: Eye foreign body, Sprain of wrist, right Instructions: DI for Wrist Sprain Activity Restrictions/Additional Instructions: *You have been diagnosed with [right wrist sprain and successful foreign body removal from right eye] *What to do: *Please continue to take your regular medications as directed. [ ] New medication prescriptions sent to your pharmacy: [ ] [ ] New medication written as a paper prescription [ ] No new medications given *Please follow up with your primary care provider in 2-3 days, call for an appointment. Let them know you were seen in the Emergency Department and that we ask that you be seen in follow up. We will electronically transmit a record of today's note if your PCP is in our system *Return to Emergency Department if you should have any new, worsening or concerning symptoms, such as [fever greater than 101 F, shaking chills, worsening pain, persistent vomiting or other bothersome symptoms] Radiographic study has been interpreted by an emergency physician. The official diagnosis by radiology will be performed within the next 24 hours and should there be any change in outcome we will notify you of how to proceed. Prescriptions: No Action dextroamphetamine-amphetamine 30 mg capsule,extended release 24hr 30 mg PO QAM clonazepam 0.5 mg tablet 0.5 mg PO BID aluminum chloride [Drysol Dab-O-Matic] 20 % solution 1 applic TOPICAL DIRECTED levothyroxine 50 mcg tablet 50 mcg PO DAILY etodolac [Lodine] 400 mg tablet 400 mg PO BID Qty: 60 2RF Referrals: Fransico Thomas MD [Primary Care Provider] - Stand Alone Forms: Patient Portal/API
--- NOTE | 2022-06-24 05:27 | DI.RAD.S_ITS ---
PROCEDURE: XR WRIST RT MIN 3V INDICATIONS: fall with wrist pain TECHNIQUE: 4 views of the wrist were acquired. COMPARISON: None. FINDINGS: Bones: No acute fractures or dislocations. No suspicious bony lesions. Scaphoid view: Intact scaphoid. Soft tissues: No suspicious soft tissue calcifications. IMPRESSION: No acute osseous abnormality. If clinical suspicion and/or symptoms persist, additional imaging with repeat plain films, or advanced imaging (e.g. CT, MRI) may be helpful for further assessment. There is no significant discrepancy when compared to the overnight preliminary report. Approved by: Octavio Alvarez M.D. on 06/24/2022 at 8:17
[2022-06-24] MEDS: PROPARACAINE 0.5% OPHTH SOL 1 DROPS EYE-RIGHT (05:39)
[2022-06-24] MEDS: FLUORESCEIN 1 MG STRIP EYE-RIGHT (05:40)
[2022-06-24 06:10] VITALS: BP 116/62; PULSE 64; RESP 18; O2SAT 100
== END 2022-06-24 06:11 | disposition home or self-care (01) ==
PROVIDERS: Emergency Provider Emergency Medicine; Family Provider Family Medicine; PCP Family Medicine
DX: S63.591A Other specified sprain of right wrist, initial encounter (principal); T15.90XA Foreign body on external eye, part unspecified, unspecified eye, initial encounter; W18.30XA Fall on same level, unspecified, initial encounter
CPT/HCPCS: 73110; 99283

== ENCOUNTER → 2022-07-02 11:01 | Outpatient (CLI) | payer OTHER, SELFPAY ==
--- NOTE | 2022-07-02 | DI.RAD.S_ITS ---
P no no no no ROCEDURE: XR WRIST RT MIN 3V INDICATIONS: right wrist pain TECHNIQUE: 4 views of the wrist were acquired. COMPARISON: [facility], , XR WRIST RT MIN 3V, 06/24/2022, 5:28. FINDINGS: Bones: No fractures or dislocations. No suspicious bony lesions. Scaphoid view: The scaphoid is intact. Soft tissues: No suspicious soft tissue calcifications. IMPRESSION: No acute radiographic findings. No callus or periosteal reaction to suggest healing fracture. Dictated by: Shelia Banks M.D. on 07/02/2022 at 15:07 Approved by: Shelia Banks M.D. on 07/02/2022 at 15:08
== END ==
PROVIDERS: Family Provider Family Medicine; PCP Family Medicine; Referring Provider Internal Medicine; Visit Provider Internal Medicine
DX: M25.531 Pain in right wrist (principal)
CPT/HCPCS: 73110

== ENCOUNTER → 2022-07-27 15:12 | Outpatient (CLI) | payer OTHER, SELFPAY ==
--- NOTE | 2022-07-27 | DI.CT.S_ITS ---
PROCEDURE: CT SOFT TISSUE NECK W CON INDICATIONS: localized swelling, lump and mass in neck TECHNIQUE: After the administration of intravenous contrast, 3.0 mm axial sections acquired from the sella to the aortic arch. Additional oblique axial 3.0 mm sections acquired through the pharynx. 3 mm thick coronal and sagittal reformats were generated. For radiation dose reduction, the following was used: automated exposure control. COMPARISON: None. FINDINGS: Image quality: Excellent. Lymph nodes: No enlarged lymph nodes seen throughout the neck. Vessels: Visualized vasculature appears patent. Neck spaces: The oropharynx, nasopharynx, and pharynx demonstrate no mucosal lesions. The vocal cords, false vocal cords, pyriform sinuses, epiglottis, vallecula, and tongue base all appear normal. Extramucosal spaces appear unremarkable. Corresponding with the marked palpable abnormality, there is subtle enlargement and decreased attenuation left lobe of the thyroid without obvious underlying mass lesion. Glands: The parotid and submandibular glands appear normal. Miscellaneous: Visualized brain and orbits appear normal. Lung apices appear clear. Superficial soft tissues appear normal. Bones: No suspicious bony lesions. Visualized sinuses and mastoids appear unremarkable. IMPRESSION: Subtle enlargement and decreased attenuation left thyroid corresponds with the palpable area of concern. This may reflect focal thyroiditis. Consider ultrasound correlation. Approved by: Gurpreet Hayes M.D. on 07/28/2022 at 16:59
== END ==
PROVIDERS: Family Provider Family Medicine; PCP Family Medicine; Referring Provider Internal Medicine; Visit Provider Family Medicine
DX: E04.9 Nontoxic goiter, unspecified (principal); R22.1 Localized swelling, mass and lump, neck
CPT/HCPCS: 70491; Q9967

== ENCOUNTER → 2022-08-04 06:48 | Outpatient (CLI) | payer OTHER, SELFPAY ==
--- NOTE | 2022-08-04 | DI.US.S_ITS ---
PROCEDURE: US THYROID INDICATIONS: ENLARGED LEFT THYROID ON RECENT CT TECHNIQUE: Real-time scanning was performed of the thyroid gland, with image documentation. COMPARISON: [facility], CT, CT SOFT TISSUE NECK W CON, 07/27/2022, 15:21. [facility], US, US THYROID, 03/31/2019, 9:06. FINDINGS: Right: Thyroid lobe measures 3.6 x 1.2 x 0.9 cm, and is heterogeneous in echotexture. No nodules. Left: Thyroid lobe measures 3.7 x 1.8 x 1.4 cm, and is heterogeneous in echotexture. No nodules. Isthmus: 2 mm thick. IMPRESSION: Heterogeneous thyroid gland without nodules. Please correlate with thyroid function tests. ACR TI-RADS definitions and recommendations: TI-RADS 1 (benign): 0 points. FNA not needed. TI-RADS 2 (not suspicious): 2 points. FNA not needed. TI-RADS 3 (mildly suspicious): 3 points. * FNA if 2.5 cm or larger, follow up if 1.5 cm or larger (at 1, 3, and 5 years). TI-RADS 4 (moderately suspicious): 4-6 points. * FNA if 1.5 cm or larger, follow up if 1 cm or larger (at 1, 2, 3, and 5 years). TI-RADS 5 (highly suspicious): 7 points or more. * FNA if 1 cm or larger, follow up if 0.5 cm or larger (every year for 5 years). Dictated by: Amanda Armstrong M.D. on 08/04/2022 at 13:59 Approved by: Amanda Armstrong M.D. on 08/04/2022 at 14:02
== END ==
PROVIDERS: Family Provider Family Medicine; PCP Family Medicine; Referring Provider Family Medicine; Visit Provider Family Medicine
DX: E04.9 Nontoxic goiter, unspecified (principal); R22.1 Localized swelling, mass and lump, neck
CPT/HCPCS: 76536

== ENCOUNTER 2022-10-23 05:08 | Emergency (ER) | payer OTHER, SELFPAY ==
[2022-10-23 05:13] VITALS: BP 110/70; PULSE 68; RESP 18; TEMP 36.6; O2SAT 100; BMI 24.1
--- NOTE | 2022-10-23 05:22 | ED.FEMALEGU ---
HPI - Female Genitourinary General Chief complaint: Urogenital-Female Stated complaint: uti Time Seen by Provider: 10/23/22 05:16 Source: patient Mode of arrival: Ambulatory History of Present Illness HPI Narrative: 47-year-old female former smoker presents with concern of possible UTI. She is had urinary frequency, urgency and dysuria in the absence of fever, vomiting. She is had UTIs in the past and states this feels the same. Related Data Home Medications Medication Instructions Recorded Confirmed dextroamphetamine-amphetamine ER 30 mg PO QAM 07/28/18 04/03/19 30 mg 24hr capsule,extend release aluminum chloride 20 % topical 1 applic topical DIRECTED 04/03/19 04/03/19 solution (Drysol Dab-O-Matic) clonazepam 0.5 mg tablet 0.5 mg PO BID 04/03/19 04/03/19 levothyroxine 50 mcg tablet 50 mcg PO DAILY 04/03/19 04/03/19 Previous Rx's Medication Instructions Recorded etodolac 400 mg tablet (Lodine) 400 mg PO BID #60 tabs 10/19/18 sulfamethoxazole 800 1 tab PO BID 7 days #14 tabs 10/23/22 mg-trimethoprim 160 mg tablet (Bactrim DS) Allergies Allergy/AdvReac Type Severity Reaction Status Date / Time cefaclor Allergy Mild ITCHING Verified 12/05/18 09:23 Review of Systems Review of Systems Narrative: GENERAL: Denies chills, fatigue, malaise, fever, sweats. HEENT: Denies sinus pain, ear pain, sore throat, difficulty swallowing, dizziness. RESPIRATORY: Denies dyspnea, cough, wheezing, hemoptysis, sputum. CARDIOVASCULAR: Denies chest pain, palpitations, orthopnea, edema, GASTROINTESTINAL: Denies nausea, vomiting, abdominal pain, diarrhea, constipation, melena. : See HPI MUSCULOSKELETAL: denies weakness, joint pain, or bony pain SKIN: Denies rash, skin lesions, or other NEUROLOGIC: Denies weakness, headache, numbness, change in speech, confusion, seizures, incoordination. PSYCHIATRIC: No concerning psychosocial issues. 12 point review of systems is negative except for those stated above Patient History Medical History Abscess of pelvis Benign hematuria Enlargement of left sternoclavicular joint Hypothyroidism Surgical History History of third molar tooth extraction Status post appendectomy Status post bilateral salpingo-oophorectomy (BSO) (04/03/16) Status post exploratory laparotomy (04/03/16) Status post hysterectomy (04/03/16) Status post laparoscopy alcohol intake frequency: a few times a week Substance Use Type: does not use Exam Narrative Exam Narrative: GEN: AOx3 and in mild distress EYES: Pupils are equal, round, and reactive to light and accommodation. Extraoccular muscles are intact bilaterally. There is no subconjunctival hemorrhage or exudate. CHEST: Lungs are clear to auscultation bilaterally and free of wheezes, rales, or rhonchi. Heart rate is regular rhythm, there are no murmurs, clicks, rubs, or gallops. There is no chest wall tenderness. ABD: Abdomen is soft and nontender. There is no guarding or rebound. Bowel sounds are normal in all 4 quadrants. There is no mass or organomegaly. BACK: mild left CVA tenderness EXT: Full painless ROM of all extremities with no loss of sensation or strength. SKIN: Warm, pink, and dry. No erythema or rash Initial Vital Signs Initial Vital Signs: Vital Signs Temperature 97.9 F 10/23/22 05:13 Pulse Rate 68 10/23/22 05:13 Respiratory Rate 18 10/23/22 05:13 Blood Pressure 110/70 10/23/22 05:13 Pulse Oximetry 100 10/23/22 05:13 Oxygen Delivery Method Room Air 10/23/22 05:13 Course Orders Ordered: ED Orders 10/23/22 05:20 UA Complete [Urinalysis and Microscopic] Stat Discontinued Medications Trimethoprim/Sulfamethoxazole (Trimeth/Sulfa 160/800 (Ds) Tablet) 1 tab PO NOW ONE Stop: 10/23/22 05:34 Last Admin: 10/23/22 05:39 Dose: 1 tab Vital Signs Vital signs: Vital Signs - 8 hr 10/23/22 05:13 Temperature 97.9 F Pulse Rate 68 Respiratory Rate 18 Blood Pressure 110/70 Pulse Oximetry 100 Oxygen Delivery Method Room Air MDM - Female Genitourinary Lab Data Labs: Urine Dip Bedside Urine Glucose Negative Bedside Urine Bilirubin + 1 Bedside Urine Ketone - Negative Urine Specific [place] 1.005 Bedside Urine Occult Blood +++ Bedside Urine pH 7.0 Bedside Urine Protein - Negative Bedside Urine Urobilinogen - Negative Bedside Urine Nitrite + Positive Bedside Urine Leukocytes +++ 500 Esterase MDM Narrative Medical decision making narrative: [47] year old patient presents with UTI symptoms and mild flank pain Multiple etiologies for patient's symptoms considered including, but not limited to: [cystitis vs. pyelonephritis vs. other] Prior Charts reviewed in our EMR Primary Historian: patient Labs reviewed and interpreted by myself: urine demonstrates UTI History and physical exam are reassuring, no signs of sepsis, urinary frequency, urgency and dysuria in the setting of abnormal urine is consistent with UTI. She does have some mild flank pain and for that reason we will extend duration to 7 days Findings and discharge diagnosis discussed with patient/family followed by verbalization of understanding Return precautions discussed with patient/family whom verbalize understanding of diagnosis and plan Discharge Plan Departure Patient Disposition: Home Clinical Impression: UTI (urinary tract infection) Instructions: DI for Urinary Tract Infection (UTI) Activity Restrictions/Additional Instructions: *You have been diagnosed with [urinary tract infection] *What to do: *Please continue to take your regular medications as directed. [x ] New medication prescriptions sent to your pharmacy: [ [facility]] [ ] New medication written as a paper prescription [ ] No new medications given *Please follow up with your primary care provider in 2-3 days, call for an appointment. Let them know you were seen in the Emergency Department and that we ask that you be seen in follow up. We will electronically transmit a record of today's note if your PCP is in our system *Return to Emergency Department if you should have any new, worsening or concerning symptoms, such as [fever greater than 101 F, shaking chills, worsening pain, persistent vomiting or other bothersome symptoms] Prescriptions: New sulfamethoxazole-trimethoprim [Bactrim DS] 800-160 mg tablet 1 tab PO BID 7 Days Qty: 14 0RF No Action dextroamphetamine-amphetamine 30 mg capsule,extended release 24hr 30 mg PO QAM clonazepam 0.5 mg tablet 0.5 mg PO BID aluminum chloride [Drysol Dab-O-Matic] 20 % solution 1 applic TOPICAL DIRECTED levothyroxine 50 mcg tablet 50 mcg PO DAILY etodolac [Lodine] 400 mg tablet 400 mg PO BID Qty: 60 2RF Referrals: Martha,Fransico P, MD [Primary Care Provider] - Stand Alone Forms: Patient Portal/API
[2022-10-23 05:33] LABS: Appearance Urine UA CLEAR; Bilirubin Urine UA NEGATIVE (NEGATIVE); Glucose Urine UA NEGATIVE (Negative); Ketones Urine UA NEGATIVE (NEGATIVE); Leukocyte Esterase Urine UA 3+ (NEGATIVE); Nitrite Urine UA POSITIVE (Negative); Occult Blood Urine UA 2+ (Negative); Protein Urine UA TRACE (Negative); Specific Gravity Urine UA <=1.005 (1.000-1.035)
[2022-10-23] MEDS: TRIMETH/SULFA 160/800 (DS) TABLET 1 TAB PO (05:39)
[2022-10-23 05:46] LABS: Color Urine UA Dark Yellow
[2022-10-23 05:47] LABS: Bacteria Urine Few (2-10)
[2022-10-23 05:48] LABS: Culture Indicated Urine Specimen Cultured; RBC Urine 0-1/HPF (0-5/HPF); Squamous Epithelial Cell Urine 0-1 /HPF (0-5/HPF); WBC Urine 30-100/HPF (0-5/HPF)
== END 2022-10-23 05:45 | disposition home or self-care (01) ==
PROVIDERS: Emergency Provider Emergency Medicine; Family Provider Family Medicine; PCP Family Medicine
DX: N39.0 Urinary tract infection, site not specified (principal)
CPT/HCPCS: 81001; 81003; 87086; 99283

== ENCOUNTER → 2023-01-26 08:42 | Outpatient (CLI) | payer OTHER, SELFPAY ==
--- NOTE | 2023-01-26 | DI.RAD.S_ITS ---
PROCEDURE: FL WRIST INJECTION MR/CT RT INDICATIONS: WRIST PAIN COMPARISON: [facility], CR, XR WRIST 3+ VIEWS RIGHT, 01/18/2023, 9:15. TECHNIQUE: After informed consent had been obtained, the wrist was examined fluoroscopically, and a site chosen for injection of the radiocarpal compartment from a dorsal approach. Skin was prepped and draped in a sterile fashion and 1% lidocaine infiltrated from the skin down to the articular surface. A 25g hypodermic needle was then introduced into the articular space. After confirming confirmng intra-articular needle tip placement, approximately 4 mL of mixture of Isovue and dilute gadolinium solution was injected intra-articularly. Needle was removed and dressing was applied. The patient experienced no complications throughout the procedure and left the fluoroscopic suite in no apparent distress. FINDINGS: A single fluoroscopic spot image demonstrates intra-articular location to injected iodinated contrast. IMPRESSION: Successful fluoroscopic-guided administration of dilute Gadolinium solution for wrist MR arthrogram. Dictated by: Amanda Armstrong M.D. on 01/26/2023 at 9:34 Approved by: Amanda Armstrong M.D. on 01/26/2023 at 9:34
--- NOTE | 2023-01-26 | DI.MRI.S_ITS ---
PROCEDURE: MR WRIST RT W CON INDICATIONS: Clay Bunch TECHNIQUE: After the administration of 3-4 mL of dilute intra-articular Gadolinium contrast into the radiocarpal compartment, coronal T1 spin echo with fat saturation and T2 fast spin echo with fat saturation, axial T1 spin echo and T2 fast spin echo with fat saturation, sagittal T1 spin echo with and without fat saturation through the wrist. COMPARISON: None. FINDINGS: Image quality: Excellent. Bones and cartilage: The carpal bones are normally aligned. No bone marrow contusions or fractures. No evidence for avascular necrosis. Overlying cartilage surfaces appear normal. Carpal ligaments: There is full-thickness rupture of the scapholunate ligament with widening of scapholunate interval and gadolinium extravasation into the mid-carpal compartment. The lunotriquetral ligament is intact. The radioscaphocapitate and radiolunotriquetral ligaments appear intact. The arcuate ligament and short radiolunate ligament also appear normal. The dorsal intercarpal and radiotriquetral ligaments appear intact. On sagittal images, the pisohamate ligament appears intact. Triangular fibrocartilage complex: The triangular fibrocartilage disc, with its styloid and foveal lamina, appears intact. No gadolinium extravasation into the distal radioulnar joint. The adjacent meniscal homolog appears normal. The ulnar collateral ligament appears intact. The extensor carpi ulnaris tendon is normal in location and morphology. Tendons and soft tissues: The carpal tunnel structures appear normal, including the median nerve. The ulnar nerve appears normal within Guyon's canal. All six extensor tendon compartments demonstrate normal morphology, without pathologic tendon sheath fluid. No soft tissue ganglion cysts. IMPRESSION: 1. Ruptured scapholunate ligament with contrast extravasating into mid-carpal compartment and widened scapholunate interval. The lunotriquetral ligament is intact. 2. No marrow edema. No fracture or dislocation. No evidence of avascular necrosis. 3. Extensor and flexor tendons are intact. 4. Triangular fibrocartilage complex is intact. Dictated by: Shekhar Espinoza M.D. on 01/26/2023 at 11:29 Approved by: Shekhar Espinoza M.D. on 01/26/2023 at 11:43
[2023-01-26] MEDS: LIDOCAINE 1% 20 ML INJ (10:03)
[2023-01-26] MEDS: SODIUM CHLORIDE 0.9 % 20 ML VIAL IV (10:04)
== END ==
PROVIDERS: Family Provider Family Medicine; PCP Family Medicine; Referring Provider Orthopaedic Surgery; Visit Provider Orthopaedic Surgery
DX: S63.391A Traumatic rupture of other ligament of right wrist, initial encounter (principal); S63.511A Sprain of carpal joint of right wrist, initial encounter; X58.XXXA Exposure to other specified factors, initial encounter
CPT/HCPCS: 20605; 73222; 77002

== ENCOUNTER 2023-02-22 11:42 | Emergency (ER) | payer OTHER, SELFPAY ==
[2023-02-22] VITALS (13 sets, daily range): BP systolic 100–128; BP diastolic 59–72; PULSE 52–82; RESP 10–22; TEMP 36.6; O2SAT 95–100; BMI 23.4
--- NOTE | 2023-02-22 11:51 | DI.RAD.S_ITS ---
PROCEDURE: XR CHEST 1V INDICATIONS: chest pain TECHNIQUE: One view of the chest was acquired. COMPARISON: [facility], CR, XR CHEST 2V, 07/28/2018, 19:14. FINDINGS: Surgical changes and devices: None. Lungs and pleura: Lungs are clear. No pleural effusions or pneumothorax. Mediastinum: Mediastinal contours appear normal. Heart size is normal. Bones and chest wall: No suspicious bony lesions. Overlying soft tissues appear unremarkable. IMPRESSION: No acute cardiopulmonary abnormality is seen. Dictated by: Iftikhar Nails M.D. on 02/22/2023 at 13:05 Approved by: Iftikhar Nails M.D. on 02/22/2023 at 13:06
[2023-02-22 12:28] LABS: Add Manual Diff / Slide Review NO; Basophils Absolute Auto 100 /uL (0-100); Basophils Percent Auto 0.9 % (0-2); Eosinophils Absolute Auto 200 /uL (0-450); Eosinophils Percent Auto 2.7 % (2-4); Hematocrit 44.2 % (36-46); Hemoglobin 15.2 g/dL (12.0-16.0); Lymphocytes Absolute Auto 2000 /uL (1100-4500); Lymphocytes Percent Auto 25.6 % (25-40); Mean Corpuscular HGB Conc 34.4 % (30-36); Mean Corpuscular Hemoglobin 31.8 PG (26-34); Mean Corpuscular Volume 92.7 fL (80-100); Monocytes Absolute Auto 500 /uL (0-900); Monocytes Percent Auto 6.3 % (3-14); Neutrophils Absolute Auto 4900 /uL (1500-7000); Neutrophils Percent Auto 64.5 % (50-75); Platelet Count 263 X10^3/uL (150-400); Red Blood Cell Count 4.77 X10^6/uL (4.0-5.2); Red Cell Distribution Width 12.4 % (11.6-14.8); White Blood Cell Count 7.7 X10^3/uL (4.5-11.0)
[2023-02-22 12:36] LABS: INR 1.1 (0.9-1.3); Prothrombin Time 12.2 SECONDS (9.4-12.5)
[2023-02-22 12:39] LABS: Alanine Aminotransferase 16 IU/L (<35); Albumin 4.4 g/dL (3.5-5.0); Albumin Globulin Ratio 1.4 (1.0-2.8); Alkaline Phosphatase 59 U/L (38-126); Aspartate Aminotransferase 23 IU/L (14-36); BUN Creatinine Ratio 21.2 (6-22); Bilirubin Total 0.7 mg/dL (0.2-1.3); Blood Urea Nitrogen 14 mg/dL (7-17); Calcium 9.8 mg/dL (8.4-10.2); Carbon Dioxide 27 mmol/L (22-32); Chloride 103 mmol/L (98-107); Creatine Kinase 53 U/L (30-135); Estimated Glomerular Filt Rate > 60 mL/min (>60); Globulin 3.2 g/dL (1.7-4.1); Glucose 72 mg/dL (70-100); HEMOLYSIS < 15 (0-50); Lipase 107 U/L (23-300); PTT Partial Thromboplastin Tim 29 SECONDS (25.1-36.5); Potassium 3.7 mmol/L (3.4-5.1); Sodium 137 mmol/L (137-145); Total Protein 7.6 g/dL (6.3-8.2)
[2023-02-22 12:51] LABS: Troponin I < 0.012 ng/mL (0.01-0.034)
--- NOTE | 2023-02-22 13:00 | PC.NURSE ---
Pt felt fine yesterday and fell asleep on the cough. She awoke at midnight with dizziness, nausea, confusion about why I was feeling sick, and had her help her into the bedroom to get into bed. She slept from 0200 until 0700 and didnt feel any better. This morning she describes neck pain and a headache in the back of her head. Pt's mother drove her to the ER today. 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 Today feels different with her dizziness and nausea which she describes as doing somersaults when she moves her head too quickly. She is not having dizziness while laying still in bed.
--- NOTE | 2023-02-22 13:28 | DI.MRI.S_ITS ---
PROCEDURE: MR HEAD/BRAIN WO CON INDICATIONS: vertigo evaluate for central cause TECHNIQUE: Noncontrast axial T1 spin echo, axial T2 fast spin echo, sagittal and axial FLAIR, coronal T2 fast spin echo, axial gradient echo, axial diffusion and ADC through the brain. COMPARISON: None. FINDINGS: Image quality: Excellent. CSF Spaces: Basal cisterns are patent. No extra-axial fluid collections. Ventricles are normal in size and shape. Brain: No intracranial masses or acute hemorrhage. Single punctate focus of susceptibility artifact in the right parietal subcortical white matter. Zambrano/white matter interface is normal. Brainstem appears normal. Diffusion-weighted images demonstrate no acute infarct. No chronic ischemic insults. Normal intravascular flow voids are present. Skull and face: Calvarium has normal marrow signal. Orbits appear normal. Sinuses: Sinuses and mastoids are clear. IMPRESSION: No acute intracranial disease process. No areas of acute or chronic infarction. No abnormal intracranial mass or acute intracranial hemorrhage. Single punctate focus of susceptibility artifact in the right parietal subcortical white matter which could represent hemosiderin deposition related to remote petechial hemorrhage or calcium deposit related to prior granulomatous disease. Dictated by: Yanira López MD, PhD on 02/22/2023 at 15:08 Approved by: Yanira López MD, PhD on 02/22/2023 at 15:12
--- NOTE | 2023-02-22 13:35 | ED.DIZZY ---
HPI - Dizziness General Chief Complaint: Dizziness Stated Complaint: vertigo Time Seen by Provider: 02/22/23 12:54 Source: patient Mode of arrival: Wheelchair History of Present Illness HPI Narrative: 48-year-old female presenting with greater than 12 hours of persistent dizziness. Significant my nausea no vomiting. She has a mild headache, mild pressure in her ears without tinnitus or ear pain. She has not had fevers. No visual changes no focal numbness or weakness or difficulty with speech. Says that she has some mild chest discomfort associated with this. Had what sounds like BPPV many years ago and reports that this feels different. No first-degree relatives with early stroke. Related Data Home Medications Medication Instructions Recorded Confirmed dextroamphetamine-amphetamine ER 30 mg PO QAM 07/28/18 04/03/19 30 mg 24hr capsule,extend release aluminum chloride 20 % topical 1 applic topical DIRECTED 04/03/19 04/03/19 solution (Drysol Dab-O-Matic) clonazepam 0.5 mg tablet 0.5 mg PO BID 04/03/19 04/03/19 levothyroxine 50 mcg tablet 50 mcg PO DAILY 04/03/19 04/03/19 Previous Rx's Medication Instructions Recorded etodolac 400 mg tablet (Lodine) 400 mg PO BID #60 tabs 10/19/18 lorazepam 0.5 mg tablet 0.5 mg PO TID PRN vertigo #14 tabs 02/22/23 ondansetron 4 mg disintegrating 4 mg PO Q6H nausea and vomiting 02/22/23 tablet #14 tabs Allergies Allergy/AdvReac Type Severity Reaction Status Date / Time sulfamethoxazole Allergy Cough Verified 02/22/23 11:46 [From ] trimethoprim [From ] Allergy Cough Verified 02/22/23 11:46 cefaclor AdvReac Mild ITCHING Verified 02/22/23 11:46 Patient History Medical History (Updated 02/22/23 @ 17:15 by Jay Eason MD) Enlargement of left sternoclavicular joint Hypothyroidism Benign hematuria Abscess of pelvis Surgical History Status post bilateral salpingo-oophorectomy (BSO) (04/03/16) Status post hysterectomy (04/03/16) Status post exploratory laparotomy (04/03/16) History of third molar tooth extraction Status post appendectomy Status post laparoscopy Social History Smoking Status: Never smoker Smoking Status: Never smoker alcohol intake frequency: holidays/special occasions only Substance Use Type: does not use Exam Narrative Exam Narrative: Alert, no acute distress HEENT: Normocephalic, atraumaitic moist mucus membranes TMs are clear Neck: Supple no midline tenderness no carotid bruits Lungs: Clear to ascultaion, no respiratory distress Heart: Regular rhythm and rate no murmur Abdomen: Normal bowel sounds, soft and nontender Extremeties: Full range of motion no deformity Neuro: Alert and oriented, normal speech moves x4. Pupils are equal round and reactive, extraocular movements are intact she has horizontal nystagmus with a fast phase to the right. Rsvfyt-ahfn-[id number] and heel-johnson are intact, no facial droop or asymmetry motor is intact. Speech is fluent Initial Vital Signs Initial Vital Signs: Vital Signs Temperature 97.8 F 02/22/23 11:46 Pulse Rate 82 02/22/23 11:46 Respiratory Rate 16 02/22/23 11:46 Blood Pressure 128/65 02/22/23 11:46 Pulse Oximetry 100 02/22/23 11:46 Oxygen Delivery Method Room Air 02/22/23 11:46 Course Orders Ordered: Discontinued Medications Aspirin (Aspirin 81 Mg Chew Tab) 324 mg PO NOW ONE Stop: 02/22/23 11:52 Last Admin: 02/22/23 11:53 Dose: Not Given Documented By: RENO Ondansetron HCl (Ondansetron 4 Mg Odt) 4 mg SL NOW ONE Stop: 02/22/23 13:29 Last Admin: 02/22/23 13:37 Dose: 4 mg Documented By: BIN Vital Signs Vital signs: Vital Signs - 8 hr 02/22/23 11:46 02/22/23 12:14 02/22/23 12:15 Temperature 97.8 F Pulse Rate 82 65 Respiratory Rate 16 21 Blood Pressure 128/65 111/67 Pulse Oximetry 100 100 Oxygen Delivery Method Room Air Room Air 02/22/23 12:15 02/22/23 12:30 02/22/23 12:30 Temperature Pulse Rate 66 67 Respiratory Rate 17 10 L Blood Pressure 103/63 Pulse Oximetry 100 99 Oxygen Delivery Method Room Air Room Air 02/22/23 13:00 02/22/23 13:00 02/22/23 13:30 Temperature Pulse Rate 62 63 Respiratory Rate 11 L 21 Blood Pressure 111/64 Pulse Oximetry 97 98 Oxygen Delivery Method 02/22/23 14:00 02/22/23 14:00 02/22/23 14:30 Temperature Pulse Rate 59 L Respiratory Rate 22 Blood Pressure 109/59 L 101/63 Pulse Oximetry 95 Oxygen Delivery Method Room Air 02/22/23 15:02 02/22/23 15:02 02/22/23 15:30 Temperature Pulse Rate 52 L Respiratory Rate 11 L Blood Pressure 109/72 106/65 Pulse Oximetry 98 Oxygen Delivery Method 02/22/23 15:30 02/22/23 16:00 02/22/23 16:00 Temperature Pulse Rate 54 L 54 L Respiratory Rate 14 16 Blood Pressure 100/65 Pulse Oximetry 99 98 Oxygen Delivery Method Room Air MDM - Dizziness Lab Data Lab results narrative: CBC with diff, CMP troponin are all normal 02/22/23 12:10 02/22/23 12:10 Labs: Lab Results 02/22/23 Range/Units 12:10 WBC 7.7 (4.5-11.0) X10^3/uL RBC 4.77 (4.0-5.2) X10^6/uL Hgb 15.2 (12.0-16.0) g/dL Hct 44.2 (36-46) % MCV 92.7 (80-100) fL MCH 31.8 (26-34) PG MCHC 34.4 (30-36) % RDW 12.4 (11.6-14.8) % Plt Count 263 (150-400) X10^3/uL Neut % (Auto) 64.5 (50-75) % Lymph % (Auto) 25.6 (25-40) % [place] % (Auto) 6.3 (3-14) % Eos % (Auto) 2.7 (2-4) % Baso % (Auto) 0.9 (0-2) % Neut # (Auto) 4900 (9636-8414) /uL Lymph # (Auto) 2000 (9208-8664) /uL [place] # (Auto) 500 (0-900) /uL Eos # (Auto) 200 (0-450) /uL Baso # (Auto) 100 (0-100) /uL PT 12.2 (9.4-12.5) SECONDS INR 1.1 (0.9-1.3) APTT 29 (25.1-36.5) SECONDS Sodium 137 (137-145) mmol/L Potassium 3.7 (3.4-5.1) mmol/L Chloride 103 (98-107) mmol/L Carbon Dioxide 27 (22-32) mmol/L BUN 14 (7-17) mg/dL Creatinine 0.66 (0.52-1.04) mg/dL Estimated GFR > 60 (>60) mL/min BUN/Creatinine Ratio 21.2 (6-22) Glucose 72 (70-100) mg/dL Calcium 9.8 (8.4-10.2) mg/dL Magnesium 2.0 (1.6-2.3) mg/dL Total Bilirubin 0.7 (0.2-1.3) mg/dL AST 23 (14-36) IU/L ALT 16 (<35) IU/L Alkaline Phosphatase 59 (38-126) U/L Total Creatine Kinase 53 (30-135) U/L Troponin I < 0.012 (0.01-0.034) ng/mL Total Protein 7.6 (6.3-8.2) g/dL Albumin 4.4 (3.5-5.0) g/dL Globulin 3.2 (1.7-4.1) g/dL Albumin/Globulin Ratio 1.4 (1.0-2.8) Lipase 107 (23-300) U/L Imaging Data mri brain: Radiologist's Impression: PROCEDURE: MR HEAD/BRAIN WO CON INDICATIONS: vertigo evaluate for central cause TECHNIQUE: Noncontrast axial T1 spin echo, axial T2 fast spin echo, sagittal and axial FLAIR, coronal T2 fast spin echo, axial gradient echo, axial diffusion and ADC through the brain. COMPARISON: None. FINDINGS: Image quality: Excellent. CSF Spaces: Basal cisterns are patent. No extra-axial fluid collections. Ventricles are normal in size and shape. Brain: No intracranial masses or acute hemorrhage. Single punctate focus of susceptibility artifact in the right parietal subcortical white matter. Zambrano/white matter interface is normal. Brainstem appears normal. Diffusion-weighted images demonstrate no acute infarct. No chronic ischemic insults. Normal intravascular flow voids are present. Skull and face: Calvarium has normal marrow signal. Orbits appear normal. Sinuses: Sinuses and mastoids are clear. IMPRESSION: No acute intracranial disease process. No areas of acute or chronic infarction. No abnormal intracranial mass or acute intracranial hemorrhage. Single punctate focus of susceptibility artifact in the right parietal subcortical white matter which could represent hemosiderin deposition related to remote petechial hemorrhage or calcium deposit related to prior granulomatous disease. Dictated by: Yanira López MD, PhD on 02/22/2023 at 15:08 Approved by: Yanira López MD, PhD on 02/22/2023 at 15:12 Chest x-ray: My Impression: Independent review portable chest x-ray ordered at triage no acute disease Radiologist's Impression: Radiology interpretation indicates no acute disease ECG Data Interpretation: EKG shows normal sinus rhythm at 63 intervals are normal, no evidence of previous infarction or chamber hypertrophy MDM Narrative Medical decision making narrative: 48-year-old female with acute onset of persistent vertigo no associated neurologic symptoms. Considered the possibility of stroke versus vestibular neuronitis. BPPV unlikely given the persistent nature her vertigo. Neuro exam is reassuring and after discussion with the patient MRI is obtained without evidence of acute stroke. She is discharged home on lorazepam as needed for vertigo and ondansetron to use as needed for nausea. We discussed starting steroids. Patient was advised that this is a common practice however the empiric evidence for this is not good and she prefers to not be on steroids at this point. Discharge Plan Departure Patient Disposition: Home Clinical Impression: Acute vestibular neuronitis Qualifiers: Laterality: left Qualified Code(s): H81.22 - Vestibular neuronitis, left ear Instructions: DI for Vertigo Activity Restrictions/Additional Instructions: Today we are treating you for vertigo. Workup is reassuring, I do not think that this is an acute stroke and I expect that this will get better within a few days. I have sent a prescription for a small amount of lorazepam which you can use as needed for dizziness. It will not make her dizziness go away completely but should make it less disturbing. I have also sent a prescription for ondansetron to use as needed for nausea and vomiting. Make an appointment to follow up soon with your primary care provider. Physical therapy may be helpful as this resolves. Return to the emergency department for severe headache fevers or disabling dizziness. The lorazepam can cause drowsiness, do not drive drink alcohol or operate machinery after taking it. If you are taking clonazepam regularly, I think it is safe to take lorazepam in addition to the clonazepam as prescribed only when dizzy. If you use clonazepam on an as-needed basis, to not take the lorazepam at the same time or within 6 hours of the clonazepam. Prescriptions: New lorazepam 0.5 mg tablet 0.5 mg PO TID PRN (Reason: vertigo) Qty: 14 0RF ondansetron 4 mg tablet,disintegrating 4 mg PO Q6H Qty: 14 0RF No Action dextroamphetamine-amphetamine 30 mg capsule,extended release 24hr 30 mg PO QAM clonazepam 0.5 mg tablet 0.5 mg PO BID aluminum chloride [Drysol Dab-O-Matic] 20 % solution 1 applic TOPICAL DIRECTED levothyroxine 50 mcg tablet 50 mcg PO DAILY etodolac [Lodine] 400 mg tablet 400 mg PO BID Qty: 60 2RF Referrals: Fransico Thomas MD [Primary Care Provider] - Stand Alone Forms: Patient Portal/API
[2023-02-22] MEDS: ONDANSETRON 4 MG ODT SL (13:37)
== END 2023-02-22 17:50 | disposition home or self-care (01) ==
PROVIDERS: Emergency Provider Emergency Medicine; Family Provider Family Medicine; PCP Family Medicine
DX: H81.22 Vestibular neuronitis, left ear (principal); R07.9 Chest pain, unspecified
CPT/HCPCS: 36415; 70551; 71045; 80053; 82550; 83690; 83735; 84484; 85025; 85610; 85730; 93005; 93010; 99284

== ENCOUNTER 2023-03-30 11:15 | Outpatient (RCR) | payer OTHER, SELFPAY ==
--- NOTE | 2023-03-17 18:14 | PT.OIE ---
Current Diagnoses Vestibular neuronitis, left ear (03/17/23) Dizziness and giddiness (03/17/23) Past Medical History (Last Reviewed 10/23/22 @ 05:40 by Balbir Fine DO) Abscess of pelvis Benign hematuria Enlargement of left sternoclavicular joint Hypothyroidism Past Surgical History (Last Reviewed 10/23/22 @ 05:40 by Balbir Fine DO) History of third molar tooth extraction Status post appendectomy Status post bilateral salpingo-oophorectomy (BSO) (04/03/16) Status post exploratory laparotomy (04/03/16) Status post hysterectomy (04/03/16) Status post laparoscopy Visit Care Team Role Provider Type Fransico Thomas MD Family Provider Physician Primary Care Provider Specialty: [facility] Address: [address] [place] [address] [place], [facility] Email: [email or web address] MONTY Hartley Attending Provider Non-Staff Referring Provider Specialty: [facility] Address: [address] [place] [address] [place], [address] Email: Physical Therapy Initial Evaluation PT-OP-A Visit Information Start: 03/17/23 17:48 Freq: Status: Active Protocol: Document 03/17/23 16:45 DCW (Rec: 03/17/23 18:03 DCW [id number]) Out-Patient Physical Therapy Visit Information Visit Information Visit Type Initial Evaluation Visit Start Time 16:45 Visit Stop Time 17:45 Visit Number 1 Number of CHIEF OF PARTY Visits 0 Evaluation Information Evaluation Date 03/17/23 PT-OP-B Current Condition Start: 03/17/23 17:48 Freq: Status: Active Protocol: Document 03/17/23 16:45 DCW (Rec: 03/17/23 18:14 DCW [id number]) Current Condition History of Current Condition Onset Date 02/21/23 Current Complaints Imbalance, dizziness History of Current Condition Pt is a 48 year old female complaining of an acute phase of spontaneous rotational vertigo occurring 02/21/23 and lasting into the next day. Notes she fell asleep on the couch, woke up, and tried to get back to her room, but was very unsteady. She finally turned the lights on, and that 's when she noticed the room was spinning. Reports her eyes were rolling around, and my brain felt like it was flipping. Pt reports lingering imbalance/motion sensitivity. Pt went to the ED the day after it happened due to CVA fears, MRI unremarkable. ED report notes horizontal nystagmus at baseline. Pt denies recent hearing changes, tinnitus, diplopia, dysarthria, discoordination, or decreased mentation/consciousness. PT-OP-C Subjective Start: 03/17/23 17:48 Freq: Status: Active Protocol: Document 03/17/23 16:45 DCW (Rec: 03/17/23 18:14 DCW [id number]) OP-PT Subjective Patient Comments Patient Comments Pt notes she recently (03/05/23 ) underwent a tendon repair in her wrist, resulting in a cast on her right arm. PT-OP-O Vestibular Start: 03/17/23 17:48 Freq: Status: Active Protocol: Document 03/17/23 16:45 DCW (Rec: 03/17/23 18:03 DCW [id number]) Vestibular Assessment Auditory Tests Mi Test Within normal limits Air Conduction Results Equal Visual Testing Smooth Pursuits Horizontal WNL Smooth Pursuits Vertical WNL Saccades Horizontal WNL Saccades Vertical WNL Heave Test Positive Left Thrust Head Positive Left DVA (Line Degradation) 5 Vestibular Function Tests Fukuda Test Negative CTSIB Position 1 30 seconds, Mild Sway CTSIB Position 2 30 seconds, Mild Sway CTSIB Position 3 30 seconds, Moderate Sway, Nausea CTSIB Position 4 30 seconds, Mild Sway CTSIB Position 5 30 seconds, Moderate Sway CTSIB Position 6 30 seconds, Severe Sway, Nausea PT-OP-Q Treatments Start: 03/17/23 17:48 Freq: Status: Active Protocol: Document 03/17/23 16:45 DCW (Rec: 03/17/23 18:02 DCW [id number]) Neuro Re-Education Treatment Vestibular Rehabilitation X1 Viewing Details Static target, head turns Distance From Target Arm's length Speed as tolerated Position Seated Comments Stopped due to increase in symptoms VOR Retraining Details Head and target move together Distance From Target Arm's length Speed as tolerated Position Seated Self-Care/Home Management Treatment Education Other Education Pt education on A&P of inner ear, VN disease process, recovery expectations PT-OP-T Assessment and Plan Start: 03/17/23 17:48 Freq: Status: Active Protocol: Document 03/17/23 16:45 DCW (Rec: 03/17/23 18:00 DCW [id number]) Physical Therapy Assessment Rehab Potential Rehabilitation Potential Good Evaluation Complexity Number of Personal Factors/Comorbidities 1-2 Number of Body Systems Impaired 1-2 Clinical Presentation at Evaluation Unstable Impairments Impairments Balance,Vestibular,Visual Motor Goals Two Impairment Nausea/symptomatic with visual conflict Nursing Home Goal (LTG) Pt to tolerate positions III and of the CTSIB with no increase in symptoms in order to improve ability to ride as a passenger in a car without motion sickness. LTG Duration 05/16/23 One Impairment Pt does not have an appropriate home exercise program Short Term Goal (STG) Pt to be independent and compliant with an appropriate vestibular HEP STG Duration 04/15/23 Assessment Summary Assessment Pt presents with signs and symptoms consistent with mild left unilateral vestibular weakness, at this point most likely a result of vestibular neuritis. Pt's initial acute phase of severe rotational vertigo following by lingering balance and visual motion sensitivity without associated heading loss is largely suggestive of vestibular neuritis vs labrynthitis. Pt demonstrates a 5 line degradation during DVA testing , and a very mildly positive left head thrust test. Pt has fairly mild symptoms at this point overall, but is admittedly still taking medications to help suppress symptoms. Pt should benefit from skilled vestibular therapy focusing on vestibular adaptation/habituation, VOR retraining, and oculomotor exercises. Physical Therapy Plan Frequency and Duration Frequency of Treatment 1-2x/week Plan of Care Start Date 03/17/23 Plan of Care End Date 05/16/23 Therapeutic Interventions Therapeutic Interventions Balance Training,Canalithic Repositioning,Coordination Training,Neuromuscular Re- education,Therapeutic Activities,Therapeutic Exercises,Vestibular Rehabilitation
--- NOTE | 2023-03-17 18:15 | PT.OPPOC ---
Physical, Occupational & Speech Therapy At [facility] Current Diagnoses Vestibular neuronitis, left ear (03/17/23) Dizziness and giddiness (03/17/23) Visit Care Team Role Provider Type Fransico Thomas MD Family Provider Physician Primary Care Provider Specialty: [facility] Address: [address] [place] [address], [facility] [place], [address] Email: [email or web address] MONTY Hartley Attending Provider Non-Staff Referring Provider Specialty: [facility] Address: [address] [place] [address], [facility], [place], [address] Email: Plan Of Care PT-OP-T Assessment and Plan Start: 03/17/23 17:48 Freq: Status: Active Protocol: Document 03/17/23 16:45 DCW (Rec: 03/17/23 18:00 DCW [id number]) Physical Therapy Assessment Rehab Potential Rehabilitation Potential Good Evaluation Complexity Number of Personal Factors/Comorbidities 1-2 Number of Body Systems Impaired 1-2 Clinical Presentation at Evaluation Unstable Impairments Impairments Balance,Vestibular,Visual Motor Goals Two Impairment Nausea/symptomatic with visual conflict Coat Padder Goal (LTG) Pt to tolerate positions III and of the CTSIB with no increase in symptoms in order to improve ability to ride as a passenger in a car without motion sickness. LTG Duration 05/16/23 One Impairment Pt does not have an appropriate home exercise program Short Term Goal (STG) Pt to be independent and compliant with an appropriate vestibular HEP STG Duration 04/15/23 Assessment Summary Assessment Pt presents with signs and symptoms consistent with mild left unilateral vestibular weakness, at this point most likely a result of vestibular neuritis. Pt's initial acute phase of severe rotational vertigo following by lingering balance and visual motion sensitivity without associated heading loss is largely suggestive of vestibular neuritis vs labrynthitis. Pt demonstrates a 5 line degradation during DVA testing , and a very mildly positive left head thrust test. Pt has fairly mild symptoms at this point overall, but is admittedly still taking medications to help suppress symptoms. Pt should benefit from skilled vestibular therapy focusing on vestibular adaptation/habituation, VOR retraining, and oculomotor exercises. Physical Therapy Plan Frequency and Duration Frequency of Treatment 1-2x/week Plan of Care Start Date 03/17/23 Plan of Care End Date 05/16/23 Therapeutic Interventions Therapeutic Interventions Balance Training,Canalithic Repositioning,Coordination Training,Neuromuscular Re- education,Therapeutic Activities,Therapeutic Exercises,Vestibular Rehabilitation Plan of Care Dates Plan of Care Start Date 03/17/23 Plan of Care End Date 05/16/23 Electronically Signed by: Eulogio Eisenberg, PT 03/17/23 [id number] If you are in agreement with this Plan of Care, please return a signed and dated copy. I have reviewed this Plan of Care and certify that the skilled therapy services above are required to meet the patient?s needs. Physician Signature Date Printed Name and Credentials Clinical Instructor Signature Printed Name and Credentials
--- NOTE | 2023-03-23 12:03 | PT.OTN ---
Current Diagnoses Vestibular neuronitis, left ear (03/23/23) Dizziness and giddiness (03/23/23) Physical Therapy Treatment Note PT-OP-A Visit Information Start: 03/17/23 17:48 Freq: Status: Active Protocol: Document 03/23/23 11:15 DCW (Rec: 03/23/23 12:03 DCW [id number]) Out-Patient Physical Therapy Visit Information Visit Information Visit Type Treatment Note Visit Start Time 11:15 Visit Stop Time 12:00 Visit Number 2 Number of FINISHER FINE DIAMOND DIES Visits 0 Evaluation Information Evaluation Date 03/17/23 PT-OP-B Current Condition Start: 03/17/23 17:48 Freq: Status: Active Protocol: Document 03/17/23 16:45 DCW (Rec: 03/17/23 18:14 DCW [id number]) Current Condition History of Current Condition Onset Date 02/21/23 Current Complaints Imbalance, dizziness History of Current Condition Pt is a 48 year old female complaining of an acute phase of spontaneous rotational vertigo occurring 02/21/23 and lasting into the next day. Notes she fell asleep on the couch, woke up, and tried to get back to her room, but was very unsteady. She finally turned the lights on, and that 's when she noticed the room was spinning. Reports her eyes were rolling around, and my brain felt like it was flipping. Pt reports lingering imbalance/motion sensitivity. Pt went to the ED the day after it happened due to CVA fears, MRI unremarkable. ED report notes horizontal nystagmus at baseline. Pt denies recent hearing changes, tinnitus, diplopia, dysarthria, discoordination, or decreased mentation/consciousness. PT-OP-C Subjective Start: 03/17/23 17:48 Freq: Status: Active Protocol: Document 03/23/23 11:15 DCW (Rec: 03/23/23 12:03 DCW [id number]) OP-PT Subjective Patient Comments Patient Comments Following last visit, she felt fairly poor with headache and nausea for 2-3 days, did not feel well enough to start with her HEP PT-OP-O Vestibular Start: 03/17/23 17:48 Freq: Status: Active Protocol: Document 03/17/23 16:45 DCW (Rec: 03/17/23 18:03 DCW [id number]) Vestibular Assessment Auditory Tests Mi Test Within normal limits Air Conduction Results Equal Visual Testing Smooth Pursuits Horizontal WNL Smooth Pursuits Vertical WNL Saccades Horizontal WNL Saccades Vertical WNL Heave Test Positive Left Thrust Head Positive Left DVA (Line Degradation) 5 Vestibular Function Tests Fukuda Test Negative CTSIB Position 1 30 seconds, Mild Sway CTSIB Position 2 30 seconds, Mild Sway CTSIB Position 3 30 seconds, Moderate Sway, Nausea CTSIB Position 4 30 seconds, Mild Sway CTSIB Position 5 30 seconds, Moderate Sway CTSIB Position 6 30 seconds, Severe Sway, Nausea PT-OP-Q Treatments Start: 03/17/23 17:48 Freq: Status: Active Protocol: Document 03/23/23 11:15 DCW (Rec: 03/23/23 12:03 [facility] [id number]) Neuro Re-Education Treatment Vestibular Rehabilitation Corrective Saccades Details Eyes, then head Distance From Target Arm's length Speed as tolerated Position Seated X2 Viewing Details Head and target move in opposite directions Distance From Target Arm's length Speed as tolerated Position Seated X1 Viewing Details Static target, head turns Distance From Target Arm's length Speed as tolerated Position Seated Comments Stopped due to increase in symptoms VOR Retraining Details Head and target move together Distance From Target Arm's length Speed as tolerated Position Seated Self-Care/Home Management Treatment Education Other Education Further discussion/education regarding recovery expectations, DDx, management of symptoms, potential next step/further testing PT-OP-T Assessment and Plan Start: 03/17/23 17:48 Freq: Status: Active Protocol: Document 03/23/23 11:15 DCW (Rec: 03/23/23 12:03 [facility] [id number]) Physical Therapy Assessment Impairments Impairments Balance,Vestibular,Visual Motor Goals Two Impairment Nausea/symptomatic with visual conflict Group Home Goal (LTG) Pt to tolerate positions III and of the CTSIB with no increase in symptoms in order to improve ability to ride as a passenger in a car without motion sickness. LTG Duration 05/16/23 One Impairment Pt does not have an appropriate home exercise program Short Term Goal (STG) Pt to be independent and compliant with an appropriate vestibular HEP STG Duration 04/15/23 Assessment Summary Assessment Took it easier today due to pt 's fairly severe symptoms following initial evaluation. Pt did well, did require a few breaks following oculomotor testing due to incerased symptoms, but quick recovery. Physical Therapy Plan Frequency and Duration Frequency of Treatment 1-2x/week Plan of Care Start Date 03/17/23 Plan of Care End Date 05/16/23 Therapeutic Interventions Therapeutic Interventions Balance Training,Canalithic Repositioning,Coordination Training,Neuromuscular Re- education,Therapeutic Activities,Therapeutic Exercises,Vestibular Rehabilitation
--- NOTE | 2023-03-30 12:03 | PT.OTN ---
Current Diagnoses Vestibular neuronitis, left ear (03/30/23) Dizziness and giddiness (03/30/23) Physical Therapy Treatment Note PT-OP-A Visit Information Start: 03/17/23 17:48 Freq: Status: Active Protocol: Document 03/30/23 11:18 DCW (Rec: 03/30/23 12:03 DCW [id number]) Out-Patient Physical Therapy Visit Information Visit Information Visit Type Treatment Note Visit Start Time 11:18 Visit Stop Time 12:00 Visit Number 3 Number of UPPER LINING CEMENTER Visits 0 Evaluation Information Evaluation Date 03/17/23 PT-OP-B Current Condition Start: 03/17/23 17:48 Freq: Status: Active Protocol: Document 03/17/23 16:45 DCW (Rec: 03/17/23 18:14 DCW [id number]) Current Condition History of Current Condition Onset Date 02/21/23 Current Complaints Imbalance, dizziness History of Current Condition Pt is a 48 year old female complaining of an acute phase of spontaneous rotational vertigo occurring 02/21/23 and lasting into the next day. Notes she fell asleep on the couch, woke up, and tried to get back to her room, but was very unsteady. She finally turned the lights on, and that 's when she noticed the room was spinning. Reports her eyes were rolling around, and my brain felt like it was flipping. Pt reports lingering imbalance/motion sensitivity. Pt went to the ED the day after it happened due to CVA fears, MRI unremarkable. ED report notes horizontal nystagmus at baseline. Pt denies recent hearing changes, tinnitus, diplopia, dysarthria, discoordination, or decreased mentation/consciousness. PT-OP-C Subjective Start: 03/17/23 17:48 Freq: Status: Active Protocol: Document 03/30/23 11:18 DCW (Rec: 03/30/23 12:03 DCW [id number]) OP-PT Subjective Patient Comments Patient Comments Has been compliant with HEP, feeling better overall. Has not needed her Meclazine, no longer experiencing the pressure behind her ears. Only symptomatic currently when first waking up in the morning , some slight nausea. PT-OP-O Vestibular Start: 03/17/23 17:48 Freq: Status: Active Protocol: Document 03/17/23 16:45 DCW (Rec: 03/17/23 18:03 DCW [id number]) Vestibular Assessment Auditory Tests Mi Test Within normal limits Air Conduction Results Equal Visual Testing Smooth Pursuits Horizontal WNL Smooth Pursuits Vertical WNL Saccades Horizontal WNL Saccades Vertical WNL Heave Test Positive Left Thrust Head Positive Left DVA (Line Degradation) 5 Vestibular Function Tests Fukuda Test Negative CTSIB Position 1 30 seconds, Mild Sway CTSIB Position 2 30 seconds, Mild Sway CTSIB Position 3 30 seconds, Moderate Sway, Nausea CTSIB Position 4 30 seconds, Mild Sway CTSIB Position 5 30 seconds, Moderate Sway CTSIB Position 6 30 seconds, Severe Sway, Nausea PT-OP-Q Treatments Start: 03/17/23 17:48 Freq: Status: Active Protocol: Document 03/30/23 11:18 DCW (Rec: 03/30/23 12:03 DCW [id number]) Gym Equipment Shuttle Balance Red Details WBOS (EO/EC), Staggered, Lateral Neuro Re-Education Treatment Balance Activities Visual Conflict Details Visual conflict board Surface Double stacked AirEx Dynamic gait Details Hallway ambulation Comments Head turns (120 bpm) Tandem (Fwd/Bkwd) Ambulation EC Ambulation PT-OP-T Assessment and Plan Start: 03/17/23 17:48 Freq: Status: Active Protocol: Document 03/30/23 11:18 DCW (Rec: 03/30/23 12:03 DCW [id number]) Physical Therapy Assessment Impairments Impairments Balance,Vestibular,Visual Motor Goals Two Impairment Nausea/symptomatic with visual conflict Custodial Goal (LTG) Pt to tolerate positions III and of the CTSIB with no increase in symptoms in order to improve ability to ride as a passenger in a car without motion sickness. LTG Duration 05/16/23 One Impairment Pt does not have an appropriate home exercise program Short Term Goal (STG) Pt to be independent and compliant with an appropriate vestibular HEP STG Duration 04/15/23 Assessment Summary Assessment Significant improvement today, not symptomatic with any activities during today's session. Pt has no further follow-ups scheduled, agreeable to try to return to normal exercise levels, will only call for follow-up if her symptoms return, will otherwise be discharged after ~1 month Physical Therapy Plan Frequency and Duration Frequency of Treatment 1-2x/week Plan of Care Start Date 03/17/23 Plan of Care End Date 05/16/23 Therapeutic Interventions Therapeutic Interventions Balance Training,Canalithic Repositioning,Coordination Training,Neuromuscular Re- education,Therapeutic Activities,Therapeutic Exercises,Vestibular Rehabilitation
--- NOTE | 2023-07-01 17:37 | PT.OPDS ---
Current Diagnoses Vestibular neuronitis, left ear (03/30/23) Dizziness and giddiness (03/30/23) Visit Care Team Role Provider Type Fransico Thomas MD Family Provider Physician Primary Care Provider Specialty: [facility] Address: [address] [place] [address], [place], [address] Email: [email or web address] Attending Provider Non-Staff Referring Provider Specialty: [facility] Address: [address] [place] [address], [place], [address] Email: Visit Number Visit Number 3 Discharge Summary PT-OP-B Current Condition Start: 03/17/23 17:48 Freq: Status: Active Protocol: Document 03/17/23 16:45 DCW (Rec: 03/17/23 18:14 DCW [id number]) Current Condition History of Current Condition Onset Date 02/21/23 Current Complaints Imbalance, dizziness History of Current Condition Pt is a 48 year old female complaining of an acute phase of spontaneous rotational vertigo occurring 02/21/23 and lasting into the next day. Notes she fell asleep on the couch, woke up, and tried to get back to her room, but was very unsteady. She finally turned the lights on, and that 's when she noticed the room was spinning. Reports her eyes were rolling around, and my brain felt like it was flipping. Pt reports lingering imbalance/motion sensitivity. Pt went to the ED the day after it happened due to CVA fears, MRI unremarkable. ED report notes horizontal nystagmus at baseline. Pt denies recent hearing changes, tinnitus, diplopia, dysarthria, discoordination, or decreased mentation/consciousness. PT-OP-C Subjective Start: 03/17/23 17:48 Freq: Status: Active Protocol: Document 03/30/23 11:18 DCW (Rec: 03/30/23 12:03 DCW [id number]) OP-PT Subjective Patient Comments Patient Comments Has been compliant with HEP, feeling better overall. Has not needed her Meclazine, no longer experiencing the pressure behind her ears. Only symptomatic currently when first waking up in the morning , some slight nausea. PT-OP-O Vestibular Start: 03/17/23 17:48 Freq: Status: Active Protocol: Document 03/17/23 16:45 DCW (Rec: 03/17/23 18:03 DCW [id number]) Vestibular Assessment Auditory Tests Mi Test Within normal limits Air Conduction Results Equal Visual Testing Smooth Pursuits Horizontal WNL Smooth Pursuits Vertical WNL Saccades Horizontal WNL Saccades Vertical WNL Heave Test Positive Left Thrust Head Positive Left DVA (Line Degradation) 5 Vestibular Function Tests Fukuda Test Negative CTSIB Position 1 30 seconds, Mild Sway CTSIB Position 2 30 seconds, Mild Sway CTSIB Position 3 30 seconds, Moderate Sway, Nausea CTSIB Position 4 30 seconds, Mild Sway CTSIB Position 5 30 seconds, Moderate Sway CTSIB Position 6 30 seconds, Severe Sway, Nausea PT-OP-T Assessment and Plan Start: 03/17/23 17:48 Freq: Status: Active Protocol: Document 07/01/23 17:35 DCW (Rec: 07/01/23 17:37 DCW [id number]) Physical Therapy Assessment Goals Two Impairment Nausea/symptomatic with visual conflict Clinical Lab Clerk Goal (LTG) Pt to tolerate positions III and of the CTSIB with no increase in symptoms in order to improve ability to ride as a passenger in a car without motion sickness. LTG Duration 05/16/23 One Impairment Pt does not have an appropriate home exercise program Short Term Goal (STG) Pt to be independent and compliant with an appropriate vestibular HEP STG Duration 04/15/23 Assessment Summary Assessment Pt was doing very well by last session, plan was to discharge if pt did not schedule any follow-ups after return to usual activity. Pt has not been seen in three months, plan to discharge from skilled therapy at this time. Physical Therapy Plan Discharge Physical Therapy Discharge Reasons Goals Met
== END 2023-07-07 13:39 ==
LOC: PHYS 11:15
PROVIDERS: Family Provider Family Medicine; PCP Family Medicine; Referring Provider Registered Nurse; Visit Provider Registered Nurse
DX: H81.22 Vestibular neuronitis, left ear (principal)
CPT/HCPCS: 97112; 97162; 97535

== ENCOUNTER 2023-07-08 08:58 | Day surgery (SDC) | payer OTHER, SELFPAY ==
[2023-07-08 10:09] VITALS: BP 118/79; PULSE 65; RESP 18; TEMP 37.1; O2SAT 98
[2023-07-08] MEDS: LACTATED RINGERS 1,000 ML 42 ML IV (10:13)
--- NOTE | 2023-07-08 10:38 | P.HP_ITS ---
History of Present Illness History of Present Illness Date Patient Seen: 07/08/23 Time Patient Seen: 10:38 Chief complaint: Screening Colonoscopy Narrative: Here for her 1st colonoscopy for colon cancer screening. Reports her father was diagnosed with lymphoma during a colonoscopy but no colon cancer. No symptoms currently with the exception intermittent abdominal pain throughout the year and a suspicion for lupus. [facility] Medical History Enlargement of left sternoclavicular joint Hypothyroidism Benign hematuria Abscess of pelvis Surgical History Status post bilateral salpingo-oophorectomy (BSO) (04/03/16) Status post hysterectomy (04/03/16) Status post exploratory laparotomy (04/03/16) History of third molar tooth extraction Status post appendectomy Status post laparoscopy Social History Smoking Status: Never smoker Meds Home Medications and Allergies Home Medications Medication Instructions Recorded Confirmed Type dextroamphetamine-amphetamine ER 30 mg PO QAM 07/28/18 07/08/23 History 30 mg 24hr capsule,extend release aluminum chloride 20 % topical 1 applic topical DIRECTED 04/03/19 04/03/19 History solution (Drysol Dab-O-Matic) ondansetron 4 mg disintegrating 4 mg PO Q6H nausea and vomiting 02/22/23 07/08/23 Rx tablet #14 tabs meloxicam 7.5 mg tablet 7.5 mg PO QD-BID 07/08/23 07/08/23 History Allergies Allergy/AdvReac Type Severity Reaction Status Date / Time sulfamethoxazole Allergy Cough Verified 07/08/23 10:03 [From ] trimethoprim [From ] Allergy Cough Verified 07/08/23 10:03 cefaclor AdvReac Mild ITCHING Verified 07/08/23 10:03 Review of Systems Review of Systems ROS: Yes All systems reviewed with the patient and are negative except as otherwise documented Exam Vital Signs (past 8 hours): - 07/08/23 10:09 Temperature 98.8 F Pulse Rate 65 Respiratory Rate 18 Blood Pressure 118/79 Pulse Oximetry 98 Oxygen Delivery Method Room Air Oxygen Delivery Method Room Air Const General: cooperative and healthy appearing Nutritional Appearance: average body habitus HENMT Head: normocephalic and atraumatic Eyes Sclera: sclerae normal Neck Neck: trachea midline and No JVD Chest Chest: normal inspection of the chest and normal palpation of entire chest wall Resp Effort & Inspection: normal respiratory effort and able to speak in complete sentences Cardio Rate: regular rate Rhythm: regular rhythm GI Inspection: normal to inspection Palpation: soft and No tender Skin General: elasticity normal and turgor normal Neuro General: patient alert, patient awake and patient oriented x3 Cognition: normal cognition Extrem General: normal to inspection Psych Appearance: grossly normal Mental Status: mental status grossly normal Affect: normal affect Judgment: judgment good Assessment & Plan Assessment & Plan narrative: colon cancer screening with colonoscopy and anesthesia Time Spent With Patient Time with patient: less than 30 minutes
--- NOTE | 2023-07-08 11:08 | PM.OP.COLON ---
Operative Date/Time/Diagnoses Date of procedure: 07/08/23 Time of procedure: 11:08 Pre-op diagnosis: Colon cancer screening Post-op diagnosis: same Procedure & Clinicians Study performed: Colonoscopy with anesthesia Same procedure as scheduled: Yes Indications: Colon cancer screening Surgeon: Unique Magaña Procedure Notes Procedure in detail: Preop diagnosis: Colon cancer screening Postop diagnosis: Same Operative procedure: Colonoscopy with anesthesia. Surgeon: Cortney Magaña MD Findings: No polyps identified. There were small external hemorrhoidal tags. Procedure: Patient placed in lateral position. Rectal exam performed showing normal tone no masses. Colonoscope inserted into the rectum and advanced to ileocecal valve with minimal difficulty. Retroflex was included in the rectum. All of the above findings. Impression: No polyps identified. Hemorrhoidal tags external Plan: Repeat colonoscopy 10 years unless otherwise indicated by change in clinical condition Specimen(s): none sent Complications: none Post-procedure Recommendations: Colonoscopy in 10 years Follow up: as needed Disposition: PACU
[2023-07-08 11:13] VITALS: BP 101/56; PULSE 71; RESP 16; TEMP 36.1; O2SAT 98
[2023-07-08 11:18] VITALS: BP 100/60; PULSE 77; RESP 15; O2SAT 98
[2023-07-08 11:25] VITALS: BP 96/62; PULSE 72; RESP 16; TEMP 36.2; O2SAT 98
== END 2023-07-08 11:34 | disposition home or self-care (01) ==
PROVIDERS: Family Provider Family Medicine; PCP Family Medicine; Referring Provider Surgery; Visit Provider Surgery
PROC: 0DJD8ZZ Inspection of Lower Intestinal Tract, Via Natural or Artificial Opening Endoscopic (ICD-10-PCS; CPT 45378; principal; 2023-07-08 09:45)
DX: Z12.11 Encounter for screening for malignant neoplasm of colon (principal); K64.4 Residual hemorrhoidal skin tags
CPT/HCPCS: 45378; J2704

== ENCOUNTER → 2024-04-20 07:38 | Outpatient (CLI) | payer OTHER, SELFPAY ==
[2024-04-20 08:56] LABS: Alanine Aminotransferase 26 IU/L (<35); Albumin 4.8 g/dL (3.5-5.0); Albumin Globulin Ratio 1.8 (1.0-2.8); Alkaline Phosphatase 63 U/L (38-126); Aspartate Aminotransferase 30 IU/L (14-36); BUN Creatinine Ratio 17.7 (6-22); Bilirubin Total 0.4 mg/dL (0.2-1.3); Blood Urea Nitrogen 14 mg/dL (7-17); Calcium 9.8 mg/dL (8.4-10.2); Carbon Dioxide 22 mmol/L (22-32); Chloride 106 mmol/L (98-107); Cholesterol 178 mg/dL (140-199); Estimated Glomerular Filt Rate > 60 mL/min (>60); Globulin 2.6 g/dL (1.7-4.1); Glucose 90 mg/dL (70-100); HDL Cholesterol 44 mg/dL (40-60); HEMOLYSIS < 15 (0-50); LDL Cholesterol Calculated 119 mg/dL (<100); Potassium 4.1 mmol/L (3.4-5.1); Sodium 140 mmol/L (137-145); Total Protein 7.4 g/dL (6.3-8.2); Triglycerides 76 mg/dL (35-150)
[2024-04-20 09:28] LABS: TSH w/ Reflex to FT4 4.05 uIU/mL (0.47-4.68)
[2024-04-20 09:47] LABS: Vitamin B12 Reflex MMA if <400 725 pg/mL (239-931)
== END ==
PROVIDERS: Family Provider Family Medicine; PCP Family Medicine; Referring Provider Family Medicine; Visit Provider Family Medicine
DX: E03.9 Hypothyroidism, unspecified (principal); Z92.29 Personal history of other drug therapy; Z13.220 Encounter for screening for lipoid disorders; Z78.9 Other specified health status; Z76.89 Persons encountering health services in other specified circumstances; Z13.21 Encounter for screening for nutritional disorder; Z78.0 Asymptomatic menopausal state
CPT/HCPCS: 36415; 80053; 80061; 82306; 82607; 82672; 84144; 84402; 84403; 84443; 84999

== ENCOUNTER → 2024-05-08 06:48 | Outpatient (CLI) | payer OTHER, SELFPAY ==
--- NOTE | 2024-05-08 06:49 | DI.US.S_ITS ---
PROCEDURE: US PELVIC COMPLETE INDICATIONS: PAIN; F/U RT OVARIAN MASS TECHNIQUE: Real-time scanning was performed of the pelvic organs, with image documentation. Additional endovaginal scanning was necessary due to incomplete visualization of the adnexal and endometrial structures by transabdominal scanning. COMPARISON: [facility], CT, CT ABDOMEN PELVIS W CON, 01/05/2022, 5:21. [facility], US, US PELVIC COMPLETE, 07/18/2018, 8:27. FINDINGS: Uterus: Removed. Ovaries: The right ovary measures 3.8 x 2.0 x 2.9 cm, with a calculated ovarian volume of 11.7 cc. The left ovary is not visualized. There is a focus of 1.3 cm complex echogenicity within the right ovary. Other: No pathologic free abdominal or pelvic fluid. IMPRESSION: Appearance suspicious for involuting cyst within the right ovary. We strive to produce accurate, complete, and clear reports of imaging services. To assist us in improving patient care, this report was composed using standard report templates and voice recognition software. Therefore, it may contain abnormal punctuation, insertions and/or omissions. Occasional wrong-word or sound-alike substitutions may occur. Though we review the report and make efforts to correct it, we do recommend that the report be read carefully in proper context to recognize any text inaccuracies. Dictated by: Niesha Brian M.D. on 05/08/2024 at 14:46 Approved by: Niesha Brian M.D. on 05/08/2024 at 14:46
--- NOTE | 2024-05-08 06:50 | DI.US.S_ITS ---
PROCEDURE: US ABDOMEN LIMITED INDICATIONS: F/U HEMANGIOMA TECHNIQUE: Real-time focused scanning was performed of the abdomen, with image documentation. COMPARISON: [facility], US, US ABDOMEN COMPLETE, 01/13/2022, 13:01. FINDINGS: Liver measures 14.3 cm. Simple right lobe cyst measures 3.9 x 3.0 by 3.7 cm compared to 3.5 x 3.4 x 2.7 cm. Focus of adjacent heterogeneous increased echogenicity is present measuring 0.8 x 0.7 x 0.7 cm compared to 0.4 x 0.6 x 0.5 cm. Gallbladder is unremarkable. Common bile duct measures 3.1 mm. IMPRESSION: Stable presumed hemangioma. Mild increased size of simple hepatic cyst. Dictated by: Niesha Brian M.D. on 05/08/2024 at 15:04 Approved by: Niesha Brian M.D. on 05/08/2024 at 15:06
== END ==
PROVIDERS: Family Provider Family Medicine; PCP Family Medicine; Referring Provider Family Medicine; Visit Provider Family Medicine
DX: K76.89 Other specified diseases of liver (principal); I82.890 Acute embolism and thrombosis of other specified veins; Z87.42 Personal history of other diseases of the female genital tract; Z86.19 Personal history of other infectious and parasitic diseases; D18.03 Hemangioma of intra-abdominal structures; Z90.710 Acquired absence of both cervix and uterus
CPT/HCPCS: 76705; 76830; 76856; 81001; 93976

== ENCOUNTER → 2024-05-08 08:07 | Outpatient (CLI) | payer OTHER, SELFPAY ==
[2024-05-08 08:51] LABS: Appearance Urine UA CLEAR; Bilirubin Urine UA NEGATIVE (NEGATIVE); Color Urine UA YELLOW; Glucose Urine UA NEGATIVE (Negative); Ketones Urine UA NEGATIVE (NEGATIVE); Leukocyte Esterase Urine UA NEGATIVE (NEGATIVE); Nitrite Urine UA NEGATIVE (Negative); Occult Blood Urine UA 1+ (Negative); Protein Urine UA NEGATIVE (Negative); Specific Gravity Urine UA <=1.005 (1.000-1.035); Urobilinogen Urine UA 0.2 E.U./dL (0.2)
[2024-05-08 08:53] LABS: Urine Volume 10mL (spun)
[2024-05-08 08:57] LABS: Bacteria Urine None Seen; Culture Indicated Urine Cult Not Indicated; RBC Urine 0-1/HPF (0-5/HPF); Squamous Epithelial Cell Urine None Seen (0-5/HPF); WBC Urine None Seen (0-5/HPF)
== END ==
PROVIDERS: Family Provider Family Medicine; PCP Family Medicine; Visit Provider Family Medicine
DX: R35.0 Frequency of micturition (principal); R30.0 Dysuria
CPT/HCPCS: 81001

== ENCOUNTER → 2024-06-27 08:57 | Outpatient (CLI) | payer OTHER, SELFPAY | PROVIDERS: Family Provider Family Medicine; PCP Family Medicine; Referring Provider Family Medicine; Visit Provider Family Medicine | DX: Z92.29 Personal history of other drug therapy (principal) | CPT/HCPCS: 36415; 84144; 84402; 84403; 84999 ==

== ENCOUNTER → 2024-09-20 10:26 | Outpatient (CLI) | payer OTHER, SELFPAY ==
[2024-09-20 11:18] LABS: Add Manual Diff / Slide Review NO; Hematocrit 42.6 % (36-46); Hemoglobin 14.7 g/dL (12.0-16.0); Lymphocytes Absolute Auto 1800 /uL (1100-4500); Mean Corpuscular HGB Conc 34.6 % (30-36); Mean Corpuscular Hemoglobin 31.9 PG (26-34); Mean Corpuscular Volume 92.2 fL (80-100); Platelet Count 270 X10^3/uL (150-400)
[2024-09-20 12:02] LABS: Alanine Aminotransferase 21 IU/L (<35); Albumin 4.7 g/dL (3.5-5.0); Albumin Globulin Ratio 1.8 (1.0-2.8); Alkaline Phosphatase 86 U/L (38-126); Blood Urea Nitrogen 24 mg/dL (7-17); Calcium 9.6 mg/dL (8.4-10.2); Carbon Dioxide 25 mmol/L (22-32); Chloride 103 mmol/L (98-107); Estimated Glomerular Filt Rate > 60 mL/min (>60); Globulin 2.6 g/dL (1.7-4.1); Glucose 80 mg/dL (70-99); HEMOLYSIS < 15 (0-50); Hemoglobin A1C% w Est Avg Glu 5.1 % (4.0-6.0); Potassium 4.7 mmol/L (3.4-5.1); Sodium 138 mmol/L (137-145); Total Protein 7.3 g/dL (6.3-8.2)
[2024-09-20 12:07] LABS: Follicle Stimulating Hormone 25.4 mIU/mL; Progesterone, Total 6.66 ng/mL
[2024-09-20 12:22] LABS: Estradiol, Total 103.3 pg/mL
[2024-09-20 12:23] LABS: Free T4, Direct Thyroxine 0.85 ng/dL (0.78-2.19); T4 Total Thyroxine 6.48 ug/dL (5.5-11.0)
[2024-09-20 12:36] LABS: Thyroid Stimulating Hormone 4.59 uIU/mL (0.47-4.68)
[2024-09-21 00:07] LABS: Cholesterol,Total 195 mg/dL (100-199); HDL Cholesterol 51 mg/dL (>39); LDL Cholesterol Cal 132 mg/dL (0-99); Triglycerides 66 mg/dL (0-149)
[2024-09-21 21:08] LABS: Anti Thyroglobulin Antibody <1.0 IU/mL (0.0-0.9)
[2024-09-22 05:10] LABS: Insulin Level Total 6.2 uIU/mL (2.6-24.9)
== END ==
PROVIDERS: Family Provider Family Medicine; PCP Family Medicine; Referring Provider Specialist; Visit Provider Specialist
DX: E06.3 Autoimmune thyroiditis (principal); E78.2 Mixed hyperlipidemia; I10 Essential (primary) hypertension; N95.9 Unspecified menopausal and perimenopausal disorder; R53.83 Other fatigue; R68.82 Decreased libido; Z51.81 Encounter for therapeutic drug level monitoring; R73.09 Other abnormal glucose
CPT/HCPCS: 36415; 80053; 80061; 82670; 83001; 83036; 83525; 84144; 84403; 84436; 84439; 84443; 84480; 84482; 85025; 86376; 86800

== ENCOUNTER → 2024-10-23 09:39 | Outpatient (CLI) | payer OTHER, SELFPAY ==
[2024-10-23 10:40] LABS: Add Manual Diff / Slide Review NO; Hematocrit 40.7 % (36-46); Hemoglobin 14.0 g/dL (12.0-16.0); Lymphocytes Absolute Auto 1600 /uL (1100-4500); Mean Corpuscular HGB Conc 34.5 % (30-36); Mean Corpuscular Hemoglobin 31.7 PG (26-34); Mean Corpuscular Volume 92.0 fL (80-100); Platelet Count 299 X10^3/uL (150-400)
[2024-10-23 10:47] LABS: Hemoglobin A1C% w Est Avg Glu 5.0 % (4.0-6.0)
[2024-10-23 12:02] LABS: Alanine Aminotransferase 22 IU/L (<35); Albumin 4.2 g/dL (3.5-5.0); Albumin Globulin Ratio 1.6 (1.0-2.8); Alkaline Phosphatase 72 U/L (38-126); Blood Urea Nitrogen 16 mg/dL (7-17); Calcium 9.3 mg/dL (8.4-10.2); Carbon Dioxide 25 mmol/L (22-32); Chloride 104 mmol/L (98-107); Cholesterol 194 mg/dL (140-199); Estimated Glomerular Filt Rate > 60 mL/min (>60); Globulin 2.7 g/dL (1.7-4.1); Glucose 86 mg/dL (70-99); HDL Cholesterol 50 mg/dL (40-60); HEMOLYSIS < 15 (0-50); Potassium 4.5 mmol/L (3.4-5.1); Sodium 137 mmol/L (137-145); Total Protein 6.9 g/dL (6.3-8.2); Triglycerides 98 mg/dL (35-150)
[2024-10-23 12:14] LABS: Follicle Stimulating Hormone 7.69 mIU/mL; Progesterone, Total 7.81 ng/mL
[2024-10-23 12:17] LABS: Free T3, Triiodothyronine Free 4.53 pg/mL (2.77-5.27); Free T4, Direct Thyroxine 0.96 ng/dL (0.78-2.19); T4 Total Thyroxine 6.68 ug/dL (5.5-11.0)
[2024-10-23 12:30] LABS: Estradiol, Total 56.1 pg/mL; Thyroid Stimulating Hormone 6.13 uIU/mL (0.47-4.68)
[2024-10-24 07:09] LABS: Insulin Level Total 9.6 uIU/mL (2.6-24.9)
[2024-10-24 16:38] LABS: Anti Thyroglobulin Antibody <1.0 IU/mL (0.0-0.9)
== END ==
PROVIDERS: Family Provider Family Medicine; PCP Family Medicine; Referring Provider Family Medicine; Visit Provider Specialist
DX: E03.9 Hypothyroidism, unspecified (principal); E06.3 Autoimmune thyroiditis; E78.2 Mixed hyperlipidemia
CPT/HCPCS: 36415; 80053; 80061; 82670; 83001; 83036; 83525; 84144; 84403; 84436; 84439; 84443; 84481; 84482; 84681; 85025; 86376; 86800

== ENCOUNTER → 2024-10-25 07:13 | Outpatient (CLI) | payer OTHER, SELFPAY | PROVIDERS: Family Provider Family Medicine; PCP Family Medicine; Referring Provider Family Medicine; Visit Provider Specialist | DX: E28.1 Androgen excess (principal); Z51.81 Encounter for therapeutic drug level monitoring | CPT/HCPCS: 36415; 84270; 84403 ==